=== PATIENT | female | born 1935 | race Caucasian/White ===

== ENCOUNTER → 2017-03-25 | Outpatient (CLI) | payer MEDICARE, OTHER ==
[~2017-03-25] MED LIST: ALEN5TAB3 PO; ANAS5POW2 PO; LVT.05T PO; MTF500T PO; OLME40TA14 PO; SIMV20TA3 PO
--- NOTE | 2017-03-25 11:09 | Diagnostic Imaging Report ---
INDICATION: Screening. COMPARISON: 01/30/2016, 11/22/2014, and 11/10/2013. TECHNIQUE: Screening digital mammography was performed bilaterally with a Computer Aided Detection (CAD) System. FINDINGS: There is a moderate amount of residual fibroglandular tissue bilaterally. There are surgical clips in the left breast. There are scattered calcifications throughout both breasts as well as some nodular densities in both breasts. These are relatively stable. There is no new dominant mass, spiculated lesion, or suspicious calcification identified. The skin, nipples, and axillae are unremarkable. IMPRESSION: Benign findings. ACR BI-RADS Category 2: Benign findings. Result letter will be mailed to the patient. Note: At least 10% of breast cancer is not imaged by mammography. Dictated by: Dictated on workstation # [id number]
== END ==
LOC: RAD 09:30
PROVIDERS: ATTEND Family Medicine
DX: Z12.31 Encounter for screening mammogram for malignant neoplasm of breast (principal); Z85.3 Personal history of malignant neoplasm of breast
CPT/HCPCS: 77067

== ENCOUNTER → 2018-06-11 | Outpatient (CLI) | payer MEDICARE, OTHER ==
--- NOTE | 2018-06-11 19:40 | Diagnostic Imaging Report ---
INDICATION: Routine screening. Comparison is made with prior mammograms from 03/25/2017 and 01/30/2016. 2-D and 3-D bilateral screening mammography was performed with Computer-Aided Detection (CAD) system. FINDINGS: Both breasts are heterogeneously dense, limiting the sensitivity of mammography. Calcified nodular densities in the right breast appear stable. Two biopsy clips in the upper-outer left breast are again noted. A slightly irregular density more inferiorly in the left breast with numerous microcalcifications is again noted. This appears very similar to last year. This density has shown slowly emerging calcifications over the last several years dating back to 2011. Additional views are recommended. No other suspicious abnormality is seen. The axillae are unremarkable. IMPRESSION: Left breast irregular density with associated microcalcifications. Additional views including spot compression and magnification views are recommended. ACR BI-RADS Category 0: Incomplete. (Needs additional imaging evaluation). Result letter will be mailed to the patient. Note: At least 10% of breast cancer is not imaged by mammography. Dictated by: Dictated on workstation # [id number]
== END ==
LOC: RAD 09:46
PROVIDERS: ATTEND Family Medicine
DX: Z12.31 Encounter for screening mammogram for malignant neoplasm of breast (principal)
CPT/HCPCS: 77067

== ENCOUNTER → 2018-06-17 | Outpatient (CLI) | payer MEDICARE, OTHER ==
--- NOTE | 2018-06-17 19:13 | Diagnostic Imaging Report ---
INDICATION: Left breast density. Patient presents for additional views. Correlation is made with recent screening study from 06/11/2018. Unilateral left 2-D and 3-D diagnostic mammography was performed with Computer-Aided Detection (CAD) system including conventional 90-degree lateral view as well as spot compression CC and ML views. FINDINGS: Additional views show persistent irregular density in the left breast projecting slightly lateral to the nipple line on the CC view and perhaps slightly inferior on the ML view. This is 4 cm from the nipple. There are numerous microcalcifications associated with the density. IMPRESSION: Persistent irregular density with microcalcifications at approximately 3 to 4 o'clock location of the left breast 4 cm from the nipple. Further evaluation with ultrasound is recommended and will be performed today. ACR BI-RADS Category 0: Incomplete. (Needs additional imaging evaluation). Result letter will be mailed to the patient. Note: At least 10% of breast cancer is not imaged by mammography. Dictated by: Dictated on workstation # [id number]
--- NOTE | 2018-06-17 19:27 | Diagnostic Imaging Report ---
INDICATION: Abnormal left mammogram. This study is performed for further evaluation. Correlation is made with diagnostic mammogram earlier the same day and screening mammogram from 06/11/2018. FINDINGS: Sonographic interrogation of the lower-outer left breast was performed. There is a slightly irregular region of hypoechogenicity at the 03:30 location of the left breast, 3 cm from the nipple. This area measures 14 mm x 10 mm x 17 mm. There are some punctate hyperechogenicities within this area suggestive of calcifications. This likely accounts for the density noted mammographically. Minimal internal vascularity is present. No other abnormalities are seen. IMPRESSION: Irregular hypoechogenicity with internal microcalcifications at the 03:30 location of the left breast, 3 cm from the nipple. This corresponds to the irregular density noted mammographically. Features are concerning and tissue sampling is recommended. This would be amenable to ultrasound-guided core sampling. ACR BI-RADS Category 4: Suspicious abnormality. Dictated by: Dictated on workstation # [id number]
== END ==
LOC: RAD 12:25
PROVIDERS: ATTEND Family Medicine
DX: R92.0 Mammographic microcalcification found on diagnostic imaging of breast (principal); R92.2 Inconclusive mammogram
CPT/HCPCS: 76642

== ENCOUNTER → 2018-06-24 | Outpatient (CLI) | payer MEDICARE, OTHER ==
[~2018-06-24] VITALS: Ht 157.5 cm; Wt 54.4 kg
[~2018-06-24] MED LIST changes: +LIDOCAINE 1% INJ 20 ML 20 ML VIAL INJ ONE
--- NOTE | 2018-06-24 20:43 | Diagnostic Imaging Report ---
INDICATION: Left breast mass. Patient presents for ultrasound-guided biopsy. Patient was brought to the procedure room, placed on table in the supine position. Ultrasound imaging of the left breast was performed to evaluate appropriate entry site. The left breast was then prepped and draped in usual sterile fashion. Small amount of 1% lidocaine was utilized for local anesthesia. A total of 3 passes were made into the ill-defined hypoechoic mass at the 3:30 location of the left breast, 3 cm from the nipple utilizing 14-gauge Achieve needle. A marker clip was then deployed. Hemostasis was obtained using manual compression. Patient tolerated the procedure well and left the department for a post procedure mammogram in satisfactory condition. IMPRESSION: Successful ultrasound guided core biopsy of the hypoechoic ill-defined mass 3:30 location left breast. Pathology results are currently pending. Dictated by: Dictated on workstation # [id number]
--- NOTE | 2018-06-24 21:24 | Diagnostic Imaging Report ---
INDICATION: Left breast biopsy. EXAMINATION: 2D and 3D lateral left diagnostic mammography was performed after patient underwent left breast ultrasound-guided core biopsy. FINDINGS: Images demonstrate a marker clip just posterior to the ill-defined mass with microcalcifications in the central left breast. Clip appears to be along the posterior and inferior margin of the lesion. Two additional marker clips from previous biopsies in the upper and outer aspect of left breast are also seen. IMPRESSION: Appropriately positioned marker clip within the ill-defined mass, central posterior left breast. Pathology results are pending. Dictated by: Dictated on workstation # [id number]
== END ==
LOC: RAD 08:06
PROVIDERS: ATTEND Family Medicine
DX: C50.512 Malignant neoplasm of lower-outer quadrant of left female breast (principal)
CPT/HCPCS: 19083; 88305; 88341; 88342; 88360

== ENCOUNTER → 2018-08-30 | Outpatient (CLI) | payer MEDICARE, OTHER ==
[~2018-08-30] MED LIST changes: -LIDOCAINE 1% INJ 20 ML 20 ML VIAL INJ ONE
--- NOTE | 2018-08-30 23:43 | Diagnostic Imaging Report ---
Ultrasound of the left breast. INDICATION: Left breast carcinoma. FINDINGS: The previous left breast ultrasound exam performed on 06/17/2018 noted an irregular region of hypoechogenicity in the 3:30 position of the left breast roughly 3 cm from the nipple. This area was subsequently biopsied and proved to be malignant. The diagnostic mammogram performed earlier today suggested that this abnormality may be slightly smaller. On this exam, the area in question does measure slightly smaller and is estimated to be 1.22 x 0.83 cm as opposed to 1.44 x 0.95 cm previously. No other abnormality is noted. IMPRESSION: 1. The irregular hypoechoic lesion seen on the previous study does measure slightly smaller than on the prior exam. 2. These results were discussed with Dr. Golden. ACR BI-RADS Category 6: Known biopsy proven malignancy. Result letter will be mailed to the patient. Note: At least 10% of breast cancer is not imaged by mammography. Dictated by: Dictated on workstation # [id number]
--- NOTE | 2018-08-31 12:45 | Diagnostic Imaging Report ---
EXAMINATION: Unilateral diagnostic left mammogram The recent diagnostic mammogram of 06/09/2018 noted an irregular density with microcalcifications in the 3-4 o'clock position of the left breast. 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 Reportedly, the patient has been receiving treatment for the neoplastic process. On this exam the area of abnormal density seen previously is again evident and does not seem to have changed significantly in size. However it may be minimally smaller. Ultrasound is pending for further evaluation. The overall appearance of the left breast is otherwise stable. No new abnormality has developed. IMPRESSION: The area of carcinoma in the left breast seen previously does not appear to have changed significantly but may be minimally smaller. Ultrasound is pending for further study. ACR BI-RADS Category 0: Incomplete. (Needs additional imaging evaluation). Result letter will be mailed to the patient. Note: At least 10% of breast cancer is not imaged by mammography. Dictated by: Dictated on workstation # [id number]
== END ==
LOC: RAD 08-05 12:27
PROVIDERS: ATTEND Internal Medicine Hematology & Oncology
DX: C50.912 Malignant neoplasm of unspecified site of left female breast (principal)
CPT/HCPCS: 76642

== ENCOUNTER 2018-09-02 14:19 | Outpatient (RCR) | payer MEDICARE, OTHER ==
[2018-09-02 14:37] LABS: BASOPHILS # (AUTO) 0.1 10^3/uL (0.0-0.1); BASOPHILS % (AUTO) 1 % (0-10); EOSINOPHILS # (AUTO) 0.3 10^3/uL (0.0-0.3); EOSINOPHILS % (AUTO) 4 % (0-10); HEMATOCRIT 38 % (35-52); HEMOGLOBIN 12.3 G/DL (11.5-16.0); LYMPHOCYTES # (AUTO) 2.3 X 10^3 (1.0-4.0); LYMPHOCYTES % (AUTO) 29 % (12-44); MEAN CORPUSCULAR HEMOGLOBIN 32 PG (25-34); MEAN CORPUSCULAR HGB CONC 33 G/DL (32-36); MEAN CORPUSCULAR VOLUME 97 FL (80-99); MEAN PLATELET VOLUME 9.1 FL (7.4-10.4); MONOCYTES # (AUTO) 0.8 X 10^3 (0.0-1.0); MONOCYTES % (AUTO) 10 % (0-12); NEUTROPHILS # (AUTO) 4.6 X 10^3 (1.8-7.8); NEUTROPHILS % (AUTO) 57 % (42-75); PLATELET COUNT 259 10^3/uL (130-400); RED CELL DISTRIBUTION WIDTH 12.1 % (10.0-14.5); WHITE BLOOD COUNT 8.1 10^3/uL (4.3-11.0)
[2018-09-02 14:56] LABS: ALANINE AMINOTRANSFERASE 15 U/L (0-55); ALBUMIN 4.6 GM/DL (3.2-4.5); ALKALINE PHOSPHATASE 42 U/L (40-136); BILIRUBIN,TOTAL 0.5 MG/DL (0.1-1.0); BUN/CREATININE RATIO 15; CALCIUM 10.6 MG/DL (8.5-10.1); CARBON DIOXIDE 29 MMOL/L (21-32); CHLORIDE 98 MMOL/L (98-107); CREATININE SERUM 0.97 MG/DL (0.60-1.30); GFR ESTIMATED 55; GLUCOSE 108 MG/DL (70-105); POTASSIUM 4.2 MMOL/L (3.6-5.0); SODIUM 134 MMOL/L (135-145); TOTAL PROTEIN 7.4 GM/DL (6.4-8.2)
== END 2018-09-29 | disposition home or self-care (01) ==
LOC: ONC 14:19
PROVIDERS: ATTEND Internal Medicine Hematology & Oncology
DX: C50.412 Malignant neoplasm of upper-outer quadrant of left female breast (principal); Z17.0 Estrogen receptor positive status [ER+]; E11.9 Type 2 diabetes mellitus without complications; Z79.811 Long term (current) use of aromatase inhibitors; Z79.84 Long term (current) use of oral hypoglycemic drugs; Z79.899 Other long term (current) drug therapy
CPT/HCPCS: 36415; 80053; 85025; 99213; 99214

== ENCOUNTER → 2018-11-26 | Outpatient (CLI) | payer MEDICARE, OTHER ==
--- NOTE | 2018-11-26 19:45 | Diagnostic Imaging Report ---
EXAMINATION: Paranasal sinuses at 11:28 a.m. INDICATION: Trauma to the left side of face. Three views were obtained. There are no prior studies available for comparison. FINDINGS: The sinuses are generally clear and well aerated. There is no mucosal thickening or fluid layering to suggest sinusitis. There is no fracture or acute bony abnormality identified either. The soft tissues are unremarkable. IMPRESSION: 1. There is no evidence for active sinus disease, and there is no sign of an acute bony abnormality. 2. If clinical concern regarding an underlying abnormality persists, then CT of the facial bones would be recommended for further study. Dictated by: Dictated on workstation # [id number]
== END ==
LOC: RAD 11:01
PROVIDERS: ATTEND Family Medicine
DX: S09.93XA Unspecified injury of face, initial encounter (principal)
CPT/HCPCS: 70220

== ENCOUNTER → 2019-02-10 | Outpatient (CLI) | payer MEDICARE, OTHER ==
[2019-02-10 14:00] LABS: BASOPHILS # (AUTO) 0.1 10^3/uL (0.0-0.1); BASOPHILS % (AUTO) 1 % (0-10); EOSINOPHILS # (AUTO) 0.2 10^3/uL (0.0-0.3); EOSINOPHILS % (AUTO) 3 % (0-10); HEMATOCRIT 37 % (35-52); LYMPHOCYTES # (AUTO) 2.4 X 10^3 (1.0-4.0); LYMPHOCYTES % (AUTO) 29 % (12-44); MEAN CORPUSCULAR HEMOGLOBIN 32 PG (25-34); MEAN CORPUSCULAR HGB CONC 33 G/DL (32-36); MEAN CORPUSCULAR VOLUME 97 FL (80-99); MEAN PLATELET VOLUME 9.2 FL (7.4-10.4); MONOCYTES # (AUTO) 0.6 X 10^3 (0.0-1.0); MONOCYTES % (AUTO) 8 % (0-12); NEUTROPHILS # (AUTO) 4.8 X 10^3 (1.8-7.8); NEUTROPHILS % (AUTO) 59 % (42-75); PLATELET COUNT 300 10^3/uL (130-400); RED CELL DISTRIBUTION WIDTH 12.3 % (10.0-14.5); WHITE BLOOD COUNT 8.2 10^3/uL (4.3-11.0)
[2019-02-10 14:20] LABS: ALANINE AMINOTRANSFERASE 16 U/L (0-55); ALBUMIN 4.7 GM/DL (3.2-4.5); ALKALINE PHOSPHATASE 45 U/L (40-136); BILIRUBIN,TOTAL 0.5 MG/DL (0.1-1.0); BUN/CREATININE RATIO 17; CALCIUM 10.9 MG/DL (8.5-10.1); CARBON DIOXIDE 30 MMOL/L (21-32); CHLORIDE 99 MMOL/L (98-107); CREATININE SERUM 1.21 MG/DL (0.60-1.30); GFR ESTIMATED 42; GLUCOSE 169 MG/DL (70-105); POTASSIUM 4.3 MMOL/L (3.6-5.0); SODIUM 139 MMOL/L (135-145); TOTAL PROTEIN 7.6 GM/DL (6.4-8.2)
== END ==
LOC: EDSTATUS 09-30 13:42 → ONC 13:48
PROVIDERS: ATTEND Internal Medicine Hematology & Oncology
DX: C50.412 Malignant neoplasm of upper-outer quadrant of left female breast (principal)
CPT/HCPCS: 36415; 80053; 85025; 99213

== ENCOUNTER → 2019-08-11 | Outpatient (CLI) | payer MEDICARE, OTHER ==
--- NOTE | 2019-08-11 18:26 | Diagnostic Imaging Report ---
INDICATION: Left breast carcinoma. Study is performed for follow-up. COMPARISON: Correlation is made with recent diagnostic mammogram from earlier the same day as well as prior left breast ultrasound from 08/30/2018. EXAMINATION: Left breast sonography was performed. FINDINGS: Area of known malignancy in the left breast, 3:00 location, 2 cm from the nipple was evaluated. Lesion is difficult to see on today's study. This does appear to be decreased in size. There is an area of heterogeneity measuring approximately 0.7 x 0.6 x 0.7 cm. This area compares with 1.2 x 0.8 x 1.1 cm on prior exam. No new abnormality is detected. IMPRESSION: Decrease in size of known malignancy, 3:00 location of left breast, when compared with examination from 08/30/2018. ACR BI-RADS Category 6: Known biopsy proven malignancy. Result letter will be mailed to the patient. Note: At least 10% of breast cancer is not imaged by mammography. Dictated by: Dictated on workstation # [id number]
--- NOTE | 2019-08-11 18:28 | Diagnostic Imaging Report ---
INDICATION: Left breast carcinoma, follow-up. COMPARISON: Correlation is made with prior mammogram from 08/30/2018 as well as 06/11/2018 and 03/25/2017. EXAMINATION: 2D and 3D bilateral diagnostic mammography was performed with cad. The current study was also evaluated with a Computer Aided Detection (CAD) system. FINDINGS: There is continued improvement in the area of known malignancy in the lower central left breast with associated microcalcifications. There is an adjacent biopsy clip. There are biopsy clips in the superior left breast as well. No new mass is seen. The right breast is unremarkable apart from stable lobulated nodule superiorly with associated benign calcifications. Axillae are unremarkable. IMPRESSION: Continued decrease in size and prominence to the known malignancy in the slightly inferior left breast when compared with study from the August 2018. Sonographic evaluation of this area is recommended and will be performed today. ACR BI-RADS Category 0: Incomplete. (Needs additional imaging evaluation). Result letter will be mailed to the patient. Note: At least 10% of breast cancer is not imaged by mammography. Dictated by: Dictated on workstation # [id number]
== END ==
LOC: RAD 12:04
PROVIDERS: ATTEND Internal Medicine Hematology & Oncology
DX: C50.112 Malignant neoplasm of central portion of left female breast (principal); Z98.890 Other specified postprocedural states
CPT/HCPCS: 76642; 77062; 77066

== ENCOUNTER → 2019-08-18 | Outpatient (CLI) | payer MEDICARE, OTHER ==
[2019-08-18 14:00] LABS: BASOPHILS # (AUTO) 0.1 10^3/uL (0.0-0.1); BASOPHILS % (AUTO) 1 % (0-10); EOSINOPHILS # (AUTO) 0.3 10^3/uL (0.0-0.3); EOSINOPHILS % (AUTO) 4 % (0-10); HEMATOCRIT 24 % (35-52); HEMOGLOBIN 7.1 G/DL (11.5-16.0); LYMPHOCYTES # (AUTO) 2.5 X 10^3 (1.0-4.0); LYMPHOCYTES % (AUTO) 32 % (12-44); MEAN CORPUSCULAR HEMOGLOBIN 22 PG (25-34); MEAN CORPUSCULAR HGB CONC 29 G/DL (32-36); MEAN CORPUSCULAR VOLUME 76 FL (80-99); MEAN PLATELET VOLUME 8.8 FL (7.4-10.4); MONOCYTES # (AUTO) 0.7 X 10^3 (0.0-1.0); MONOCYTES % (AUTO) 10 % (0-12); NEUTROPHILS # (AUTO) 4.2 X 10^3 (1.8-7.8); NEUTROPHILS % (AUTO) 53 % (42-75); PLATELET COUNT 430 10^3/uL (130-400); RED CELL DISTRIBUTION WIDTH 17.3 % (10.0-14.5); WHITE BLOOD COUNT 7.8 10^3/uL (4.3-11.0)
[2019-08-18 14:22] LABS: ALBUMIN 4.2 GM/DL (3.2-4.5); BILIRUBIN,TOTAL 0.3 MG/DL (0.1-1.0); CALCIUM 9.9 MG/DL (8.5-10.1); CREATININE SERUM 1.37 MG/DL (0.60-1.30); POTASSIUM 4.5 MMOL/L (3.6-5.0); TOTAL PROTEIN 7.4 GM/DL (6.4-8.2)
== END ==
LOC: ONC 13:46
PROVIDERS: ATTEND Internal Medicine Hematology & Oncology
DX: D64.9 Anemia, unspecified (principal); C50.412 Malignant neoplasm of upper-outer quadrant of left female breast
CPT/HCPCS: 80053; 82728; 83540; 85025; 99213

== ENCOUNTER → 2019-08-24 | Outpatient (CLI) | payer MEDICARE, OTHER ==
[2019-08-24 10:42] LABS: BASOPHILS # (AUTO) 0.1 10^3/uL (0.0-0.1); BASOPHILS % (AUTO) 2 % (0-10); EOSINOPHILS # (AUTO) 0.3 10^3/uL (0.0-0.3); EOSINOPHILS % (AUTO) 4 % (0-10); HEMATOCRIT 24 % (35-52); HEMOGLOBIN 7.2 G/DL (11.5-16.0); LYMPHOCYTES # (AUTO) 1.6 X 10^3 (1.0-4.0); LYMPHOCYTES % (AUTO) 25 % (12-44); MEAN CORPUSCULAR HEMOGLOBIN 22 PG (25-34); MEAN CORPUSCULAR HGB CONC 30 G/DL (32-36); MEAN CORPUSCULAR VOLUME 75 FL (80-99); MEAN PLATELET VOLUME 8.5 FL (7.4-10.4); MONOCYTES # (AUTO) 0.7 X 10^3 (0.0-1.0); MONOCYTES % (AUTO) 11 % (0-12); NEUTROPHILS # (AUTO) 3.8 X 10^3 (1.8-7.8); NEUTROPHILS % (AUTO) 59 % (42-75); PLATELET COUNT 418 10^3/uL (130-400); WHITE BLOOD COUNT 6.4 10^3/uL (4.3-11.0)
[2019-08-24 10:57] LABS: POTASSIUM 4.7 MMOL/L (3.6-5.0)
[2019-08-24 10:58] LABS: CALCIUM 9.5 MG/DL (8.5-10.1)
[2019-08-24 11:03] LABS: CREATININE SERUM 0.96 MG/DL (0.60-1.30)
== END ==
LOC: LAB 10:27
PROVIDERS: ATTEND Family Medicine
DX: E11.9 Type 2 diabetes mellitus without complications (principal); D64.9 Anemia, unspecified; N28.9 Disorder of kidney and ureter, unspecified
CPT/HCPCS: 36415; 80048; 83036; 85025

== ENCOUNTER → 2019-09-15 | Outpatient (CLI) | payer MEDICARE, OTHER ==
[2019-09-15 13:31] LABS: BASOPHILS # (AUTO) 0.1 10^3/uL (0.0-0.1); BASOPHILS % (AUTO) 1 % (0-10); EOSINOPHILS # (AUTO) 0.2 10^3/uL (0.0-0.3); EOSINOPHILS % (AUTO) 3 % (0-10); HEMATOCRIT 33 % (35-52); HEMOGLOBIN 10.1 G/DL (11.5-16.0); LYMPHOCYTES # (AUTO) 1.8 X 10^3 (1.0-4.0); LYMPHOCYTES % (AUTO) 29 % (12-44); MEAN CORPUSCULAR HEMOGLOBIN 27 PG (25-34); MEAN CORPUSCULAR HGB CONC 30 G/DL (32-36); MEAN CORPUSCULAR VOLUME 88 FL (80-99); MEAN PLATELET VOLUME 8.9 FL (7.4-10.4); MONOCYTES # (AUTO) 0.5 X 10^3 (0.0-1.0); MONOCYTES % (AUTO) 8 % (0-12); NEUTROPHILS # (AUTO) 3.7 X 10^3 (1.8-7.8); NEUTROPHILS % (AUTO) 59 % (42-75); PLATELET COUNT 359 10^3/uL (130-400); WHITE BLOOD COUNT 6.3 10^3/uL (4.3-11.0)
[2019-09-15 13:48] LABS: ALBUMIN 4.3 GM/DL (3.2-4.5); BILIRUBIN,TOTAL 0.4 MG/DL (0.1-1.0); CALCIUM 10.3 MG/DL (8.5-10.1); CREATININE SERUM 1.03 MG/DL (0.60-1.30); POTASSIUM 4.3 MMOL/L (3.6-5.0); TOTAL PROTEIN 7.2 GM/DL (6.4-8.2)
== END ==
LOC: ONC 13:11
PROVIDERS: ATTEND Internal Medicine Hematology & Oncology
DX: C50.412 Malignant neoplasm of upper-outer quadrant of left female breast (principal); D50.0 Iron deficiency anemia secondary to blood loss (chronic)
CPT/HCPCS: 80053; 82728; 83540; 85025; G0463; 99213

== ENCOUNTER → 2019-10-10 | Outpatient (CLI) | payer MEDICARE, OTHER ==
--- NOTE | 2019-10-10 13:40 | Diagnostic Imaging Report ---
INDICATION: Left hip pain. TIME OF EXAM: 12:51 PM. FINDINGS: Two views of the left hip were obtained. The femoroacetabular alignment is normal. There is some superior joint space narrowing present. The femoral head and neck are intact. There are no fractures. The lesser rami are intact. IMPRESSION: Hip joint degenerative changes. No acute bony abnormality is detected. Dictated by: Dictated on workstation # [id number]
== END ==
LOC: RAD 12:33
PROVIDERS: ATTEND Family Medicine
DX: M16.12 Unilateral primary osteoarthritis, left hip (principal)
CPT/HCPCS: 73502

== ENCOUNTER → 2019-10-12 | Outpatient (CLI) | payer MEDICARE, OTHER ==
[2019-10-12 10:48] LABS: HEMATOCRIT 35 % (35-52); HEMOGLOBIN 11.2 G/DL (11.5-16.0); MEAN CORPUSCULAR HEMOGLOBIN 29 PG (25-34); MEAN CORPUSCULAR HGB CONC 32 G/DL (32-36); MEAN CORPUSCULAR VOLUME 90 FL (80-99); MEAN PLATELET VOLUME 9.1 FL (7.4-10.4); PLATELET COUNT 313 10^3/uL (130-400); WHITE BLOOD COUNT 6.8 10^3/uL (4.3-11.0)
== END ==
LOC: LAB 10:39
PROVIDERS: ATTEND Family Medicine
DX: D64.9 Anemia, unspecified (principal)
CPT/HCPCS: 36415; 85027

== ENCOUNTER → 2019-11-10 | Outpatient (CLI) | payer MEDICARE, OTHER ==
[2019-11-10 13:24] LABS: BASOPHILS # (AUTO) 0.2 10^3/uL (0.0-0.1); BASOPHILS % (AUTO) 2 % (0-10); EOSINOPHILS # (AUTO) 0.3 10^3/uL (0.0-0.3); EOSINOPHILS % (AUTO) 4 % (0-10); HEMATOCRIT 31 % (35-52); HEMOGLOBIN 10.1 G/DL (11.5-16.0); LYMPHOCYTES # (AUTO) 2.2 X 10^3 (1.0-4.0); LYMPHOCYTES % (AUTO) 25 % (12-44); MEAN CORPUSCULAR HEMOGLOBIN 29 PG (25-34); MEAN CORPUSCULAR HGB CONC 33 G/DL (32-36); MEAN CORPUSCULAR VOLUME 89 FL (80-99); MEAN PLATELET VOLUME 8.8 FL (7.4-10.4); MONOCYTES # (AUTO) 0.8 X 10^3 (0.0-1.0); MONOCYTES % (AUTO) 9 % (0-12); NEUTROPHILS # (AUTO) 5.5 X 10^3 (1.8-7.8); NEUTROPHILS % (AUTO) 61 % (42-75); PLATELET COUNT 349 10^3/uL (130-400); RED CELL DISTRIBUTION WIDTH 17.2 % (10.0-14.5)
[2019-11-10 13:47] LABS: ALANINE AMINOTRANSFERASE 15 U/L (0-55); ALBUMIN 4.1 GM/DL (3.2-4.5); ALKALINE PHOSPHATASE 44 U/L (40-136); BILIRUBIN,TOTAL 0.2 MG/DL (0.1-1.0); BUN/CREATININE RATIO 24; CALCIUM 9.9 MG/DL (8.5-10.1); CARBON DIOXIDE 25 MMOL/L (21-32); CHLORIDE 102 MMOL/L (98-107); CREATININE SERUM 0.84 MG/DL (0.60-1.30); GFR ESTIMATED > 60; GLUCOSE 120 MG/DL (70-105); POTASSIUM 4.7 MMOL/L (3.6-5.0); SODIUM 136 MMOL/L (135-145); TOTAL PROTEIN 7.3 GM/DL (6.4-8.2)
== END ==
LOC: ONC 13:15
PROVIDERS: ATTEND Internal Medicine Hematology & Oncology
DX: C50.412 Malignant neoplasm of upper-outer quadrant of left female breast (principal); D50.9 Iron deficiency anemia, unspecified
CPT/HCPCS: 99213

== ENCOUNTER → 2020-01-19 | Outpatient (CLI) | payer MEDICARE, OTHER ==
[2020-01-19 13:51] LABS: BASOPHILS # (AUTO) 0.1 10^3/uL (0.0-0.1); BASOPHILS % (AUTO) 1 % (0-10); EOSINOPHILS # (AUTO) 0.1 10^3/uL (0.0-0.3); EOSINOPHILS % (AUTO) 2 % (0-10); HEMATOCRIT 30 % (35-52); LYMPHOCYTES # (AUTO) 2.1 10^3/uL (1.0-4.0); LYMPHOCYTES % (AUTO) 30 % (12-44); MEAN CORPUSCULAR HEMOGLOBIN 26 pg (25-34); MEAN CORPUSCULAR HGB CONC 30 g/dL (32-36); MEAN CORPUSCULAR VOLUME 87 fL (80-99); MEAN PLATELET VOLUME 8.9 fL (9.0-12.2); MONOCYTES # (AUTO) 0.5 10^3/uL (0.0-1.0); MONOCYTES % (AUTO) 7 % (0-12); NEUTROPHILS # (AUTO) 4.3 10^3/uL (1.8-7.8); NEUTROPHILS % (AUTO) 60 % (42-75); PLATELET COUNT 362 10^3/uL (130-400); WHITE BLOOD COUNT 7.2 10^3/uL (4.3-11.0)
[2020-01-19 14:09] LABS: ALBUMIN 4.4 GM/DL (3.2-4.5); BILIRUBIN,TOTAL 0.4 MG/DL (0.1-1.0); CALCIUM 10.1 MG/DL (8.5-10.1); CREATININE SERUM 0.98 MG/DL (0.60-1.30); POTASSIUM 4.6 MMOL/L (3.6-5.0); TOTAL PROTEIN 7.5 GM/DL (6.4-8.2)
== END ==
LOC: ONC 13:29
PROVIDERS: ATTEND Internal Medicine Hematology & Oncology
DX: C50.412 Malignant neoplasm of upper-outer quadrant of left female breast (principal); D50.0 Iron deficiency anemia secondary to blood loss (chronic)
CPT/HCPCS: 80053; 82728; 83540; 85025; 99213

== ENCOUNTER → 2020-01-24 | Outpatient (CLI) | payer MEDICARE, OTHER | LOC: LAB 13:05 | PROVIDERS: ATTEND Family Medicine | DX: E11.9 Type 2 diabetes mellitus without complications (principal) | CPT/HCPCS: 36415; 83036 ==

== ENCOUNTER → 2020-03-21 | Outpatient (CLI) | payer MEDICARE, OTHER ==
[2020-03-21 15:53] LABS: BASOPHILS # (AUTO) 0.1 10^3/uL (0.0-0.1); BASOPHILS % (AUTO) 1 % (0-10); EOSINOPHILS % (AUTO) 0 % (0-10); HEMATOCRIT 26 % (35-52); HEMOGLOBIN 7.8 g/dL (11.5-16.0); LYMPHOCYTES % (AUTO) 20 % (12-44); MEAN CORPUSCULAR HEMOGLOBIN 25 pg (25-34); MEAN CORPUSCULAR HGB CONC 30 g/dL (32-36); MEAN CORPUSCULAR VOLUME 84 fL (80-99); MEAN PLATELET VOLUME 8.5 fL (9.0-12.2); MONOCYTES # (AUTO) 0.7 10^3/uL (0.0-1.0); MONOCYTES % (AUTO) 7 % (0-12); NEUTROPHILS % (AUTO) 70 % (42-75); PLATELET COUNT 350 10^3/uL (130-400); WHITE BLOOD COUNT 9.9 10^3/uL (4.3-11.0)
[2020-03-21 16:10] LABS: ERYTHROCYTE SEDIMENTATION RATE 56 MM/HR (0-30)
== END ==
LOC: LAB 15:25
PROVIDERS: ATTEND Ophthalmology
DX: R51.9 Headache, unspecified (principal)
CPT/HCPCS: 36415; 85025; 85652; 86141

== ENCOUNTER → 2020-03-22 | Outpatient (CLI) | payer MEDICARE, OTHER | LOC: LAB 13:47 | PROVIDERS: ATTEND Family Medicine | DX: D64.9 Anemia, unspecified (principal) | CPT/HCPCS: 82274 ==

== ENCOUNTER 2020-03-30 05:32 | Outpatient (RCR) | payer MEDICARE, OTHER ==
[~2020-03-30] VITALS: Ht 157.5 cm; Wt 59.0 kg
[~2020-03-30 05:32] MED LIST changes: -ALEN5TAB6 PO; -ANAS1TAB50 PO; -LEVO50TA6 PO; -METF-397 PO; -OLME40TA18 PO; -SIMV20TA26 PO
== END 2020-03-30 11:02 | disposition home or self-care (01) ==
LOC: PREOP 05:32
PROVIDERS: ATTEND Surgery
DX: Z01.812 Encounter for preprocedural laboratory examination (principal); D64.9 Anemia, unspecified; Z20.822 Contact with and (suspected) exposure to COVID-19
CPT/HCPCS: 87635

== ENCOUNTER → 2020-03-30 | Outpatient (CLI) | payer MEDICARE, OTHER ==
[~2020-03-30] MED LIST changes: +ALEN5TAB6 PO; +ANAS1TAB50 PO; +LEVO50TA6 PO; +METF-397 PO; +OLME40TA18 PO; +SIMV20TA26 PO
--- NOTE | 2020-03-30 11:22 | Diagnostic Imaging Report ---
PROCEDURE: CT head without contrast. TECHNIQUE: Multiple contiguous axial images were obtained through the brain without the use of intravenous contrast. Auto Exposure Controls were utilized during the CT exam to meet ALARA standards for radiation dose reduction. DATE: March 30, 2020. COMPARISON: MRI brain February 19, 2015. CT head January 11, 2015. INDICATION: 84-year-old female, headaches. FINDINGS: There is mild proportional prominence of the ventricles and CSF spaces consistent with mild cerebral volume loss. There is no abnormal extra-axial fluid collection. There is no evidence of acute intracranial hemorrhage. There is no mass effect or midline shift. The visualized portions of the paranasal sinuses, mastoid air cells, and middle ears are well-aerated. IMPRESSION: 1. No identified acute intracranial abnormality. 2. Mild cerebral volume loss. Dictated by: Dictated on workstation # [id number]
== END ==
LOC: RAD 10:45
PROVIDERS: ATTEND Family Medicine
DX: G31.9 Degenerative disease of nervous system, unspecified (principal)
CPT/HCPCS: 70450

== ENCOUNTER 2020-04-02 10:47 | Day surgery (SDC) | payer MEDICARE, OTHER ==
[~2020-04-02] VITALS: Ht 157.5 cm; Wt 59.0 kg
[2020-04-02] VITALS (9 sets, daily range): BP systolic 102–142; BP diastolic 59–78
--- NOTE | 2020-04-02 11:08 | Progress Note-Pre Operative ---
Pre-Operative Progress Note H&P Reviewed The H&P was reviewed, patient examined and no changes noted. Time Seen by Provider: 11:06 Date H&P Reviewed: Apr 02, 2020 Time H&P Reviewed: 11:06 Pre-Operative Diagnosis: Anemia, screening colonoscopy, gastritis AME SLATER DO Apr 02, 2020 11:08
[2020-04-02] MEDS ORDERED: LACTATED RINGERS 1,000 ML IV ONE (11:18)
[2020-04-02] MEDS ORDERED: LACTATED RINGERS 1,000 ML IV STA (11:24)
[2020-04-02] MEDS ORDERED: HURRICAINE EXT TUBE (BENZOCAINE) XX PRN (11:30)
[2020-04-02] MEDS ORDERED: PROPOFOL INJECTION 50 ML IV ONE (11:58)
[2020-04-02] MEDS ORDERED: MIDAZOLAM 2 MG/2 ML (VERSED) VIAL ONE (11:58)
[2020-04-02] MEDS ORDERED: OLME40TA18 PO (12:04)
[2020-04-02] MEDS ORDERED: ALEN5TAB6 PO (12:04)
[2020-04-02] MEDS ORDERED: METF-397 PO (12:04)
[2020-04-02] MEDS ORDERED: LEVO50TA6 PO (12:04)
[2020-04-02] MEDS ORDERED: ANAS1TAB50 PO (12:04)
[2020-04-02] MEDS ORDERED: SIMV20TA26 PO (12:04)
--- NOTE | 2020-04-02 13:01 | Progress Note-Post Operative ---
Post-Operative Progess Note Surgeon (s)/Stock Grader (s) Surgeon AME SLATER DO Stock Grader: [id number] Conn Pre-Operative Diagnosis Anemia, screening colonoscopy, gastritis Post-Operative Diagnosis Gastritis ?duodenal polyp Cecal mass diverticula internal hemorrhoids Procedure & Operative Findings Date of Procedure 04/02/20 Procedure Performed/Findings EGD with bx Colon with hot bx Colon with tattoo Anesthesia Type IV sedation by WORKFORCE DEVELOPMENT VICE PRESIDENT Estimated Blood Loss Estimated blood loss (mL): scant Specimens/Packing Specimens Removed duodenal bx Antral bx GE jxn bx Cecal bx AME SLATER DO Apr 02, 2020 13:01
--- NOTE | 2020-04-02 13:02 | Endoscopy Discharge Instruct ---
Endo Procedure/Findings Findings 1.: Gastritis 2.: Polyp 3.: Diverticulosis 4.: Internal Hemorrhoids Discharge Instructions - Activity: You might feel a little sleepy until tomorrow. This is due to the medicine you received to relax you. Until tomorrow, you should: NOT drive a car, operate machinery or power tools. NOT drink any alcoholic beverages. NOT make any important decisions or sign importortant papers. Do not return to work until tomorrow, unless otherwise instructed. Resume previo us activities tomorrow. Diet: Start by taking liquids. If you tolerate liquids, advance to solid food. 1.: Colonoscopy in 1 year 2.: EGD in 1 year Notify Physician - If you experience excessive bleeding, unusual abdominal pain, fever, or chest pain, contact your doctor immediately. AME SLATER DO Apr 02, 2020 13:02
--- NOTE | 2020-04-02 13:05 | Anesthesia-General Post-Op ---
MAC Patient Condition Mental Status/LOC: Same as Preop Cardiovascular: Satisfactory Nausea/Vomiting: Absent Respiratory: Satisfactory Pain: Controlled Complications: Absent Post Op Complications Complications None Follow Up Care/Instructions Patient Instructions None needed. Anesthesiology Discharge Order Discharge Order Patient is doing well, no complaints, stable vital signs, no apparent adverse anesthesia problems. No complications reported per nursing. VIKASH WARE CRNA Apr 02, 2020 13:05
--- NOTE | 2020-04-02 23:15 | OPERATIVE REPORT ---
DATE OF SERVICE: PREOPERATIVE DIAGNOSES: Anemia, screening colonoscopy, gastritis. POSTOPERATIVE DIAGNOSES: Gastritis, questionable duodenal polyp as well as cecal mass, diverticula, internal hemorrhoids. PROCEDURES: 1. EGD with biopsy. 2. Colonoscopy with hot biopsy. 3. Colonoscopy with tattooing. SURGEON: Victoriano Muir DO SHOOTER'S HELPER: LINUS Conn. ANESTHESIA: IV sedation by the ALCOHOLIC COUNSELOR. SPECIMEN: Duodenal biopsy, antral biopsy, GE junction biopsy and cecal biopsy. BLOOD LOSS: Scant. FLUIDS: Per anesthesia. POSTOPERATIVE CONDITION: Stable. INDICATION FOR PROCEDURE: The patient is an 84-year-old female who is having some anemia, also history of gastritis and she needed a screening colonoscopy. FINDINGS: The patient had what looked like possible duodenal polyps. She had some mild gastritis in his colon. She had a large cecal mass. She had multiple diverticula and she had some internal hemorrhoids. PROCEDURE NOTE: After informed consent was obtained, the patient was brought to the endoscopy suite, placed in bed in left lateral decubitus position. She was administered IV sedation by the ALCOHOLIC COUNSELOR who then monitored her vitals the entire time, heart rate, blood pressure and pulse ox. Started with the EGD, placed the scope down the mouth through the esophagus into the stomach, pushed pass the antrum into the duodenum and the duodenum looked like there was possibly polyps, took a picture and then did a biopsy of this. Pulled the scope back and did a biopsy of the antrum. Retroflexed the scope, did not really see hiatal hernia. Pulled the scope into the GE junction, did a biopsy. I did not really see any other gastritis in the rest of the stomach. At this point, then pushed the scope into the stomach, suctioned all the air out and then pulled the scope up the esophagus and out the mouth. Switched camera, switched gloves, went down below, started the colonoscopy, pushed in and saw some large diverticula and a couple of retained fecal balls, able to then push all the way up to the cecum, could not really identify the appendiceal orifice but I may have I am not sure but in the cecum, there was a large mass, I elected to do a hot biopsy of this, got good pieces and then elected to do some tattooing in case we needed to go back to get this area out and it was in the cecum. At this point, then slowly withdrew the scope insufflating to look circumferentially at the rayo starting in the cecum, up the ascending colon, hepatic flexure, then down the transverse colon, splenic flexure, into the descending colon down to the sigmoid, finally into the rectum and then retroflexed in rectal vault, saw some minimal internal hemorrhoids, took a picture of these and then removed the scope. The patient tolerated the procedure. She was recovered in endoscopy suite. Job ID: [id number] DocumentID: [id number] Dictated Date: 04/02/2020 16:09:46 Shoe Singer Date: 04/02/2020 23:13:44 Dictated By: DO NIMESH BATEMAN
== END 2020-04-02 13:55 | disposition home or self-care (01) ==
LOC: ENDO 10:47
PROVIDERS: ATTEND Surgery
DX: Z12.11 Encounter for screening for malignant neoplasm of colon (principal); C18.0 Malignant neoplasm of cecum; K29.70 Gastritis, unspecified, without bleeding; K64.8 Other hemorrhoids; K57.30 Diverticulosis of large intestine without perforation or abscess without bleeding; I10 Essential (primary) hypertension; E11.9 Type 2 diabetes mellitus without complications; E03.9 Hypothyroidism, unspecified; E78.5 Hyperlipidemia, unspecified; K21.9 Gastro-esophageal reflux disease without esophagitis; D50.9 Iron deficiency anemia, unspecified; K29.50 Unspecified chronic gastritis without bleeding; Z79.899 Other long term (current) drug therapy; Z79.84 Long term (current) use of oral hypoglycemic drugs; Z88.2 Allergy status to sulfonamides
CPT/HCPCS: 82962; 88305; 88341; 88342

== ENCOUNTER 2020-04-17 05:35 | Outpatient (RCR) | payer MEDICARE, OTHER ==
[~2020-04-17] VITALS: Ht 160 cm; Wt 56.0 kg
[~2020-04-17 05:35] MED LIST changes: +ALEN5TAB6 PO; +ANAS1TAB50 PO; +LEVO50TA6 PO; +METF-397 PO; +OLME40TA18 PO; +SIMV20TA26 PO
== END 2020-04-17 09:47 | disposition home or self-care (01) ==
LOC: PREOP 05:35
PROVIDERS: ATTEND Surgery
DX: Z01.812 Encounter for preprocedural laboratory examination (principal); C18.0 Malignant neoplasm of cecum; Z20.822 Contact with and (suspected) exposure to COVID-19
CPT/HCPCS: 87635

== ENCOUNTER 2020-04-19 08:48 | Inpatient (IN) | payer MEDICARE, OTHER ==
[~2020-04-19] VITALS: Ht 157 cm; Wt 56.0 kg
[2020-04-19] VITALS (12 sets, daily range): BP systolic 125–154; BP diastolic 67–78
[2020-04-19] MEDS ORDERED: ceFAZolin 2 GM IV Premixed 50 ML IV ONE (09:15)
[2020-04-19] MEDS: LACTATED RINGERS 1,000 ML IV PRN ×2 (09:30→11:10)
[2020-04-19 09:37] LABS: BASOPHILS # (AUTO) 0.1 10^3/uL (0.0-0.1); BASOPHILS % (AUTO) 2 % (0-10); EOSINOPHILS # (AUTO) 0.1 10^3/uL (0.0-0.3); EOSINOPHILS % (AUTO) 2 % (0-10); HEMATOCRIT 24 % (35-52); HEMOGLOBIN 7.1 g/dL (11.5-16.0); LYMPHOCYTES # (AUTO) 1.2 10^3/uL (1.0-4.0); LYMPHOCYTES % (AUTO) 28 % (12-44); MEAN CORPUSCULAR HEMOGLOBIN 25 pg (25-34); MEAN CORPUSCULAR HGB CONC 29 g/dL (32-36); MEAN CORPUSCULAR VOLUME 84 fL (80-99); MEAN PLATELET VOLUME 8.4 fL (9.0-12.2); MONOCYTES # (AUTO) 0.5 10^3/uL (0.0-1.0); MONOCYTES % (AUTO) 11 % (0-12); NEUTROPHILS # (AUTO) 2.4 10^3/uL (1.8-7.8); NEUTROPHILS % (AUTO) 57 % (42-75); PLATELET COUNT 414 10^3/uL (130-400); WHITE BLOOD COUNT 4.2 10^3/uL (4.3-11.0)
[2020-04-19] MEDS ORDERED: ceFAZolin 2 GM IV Premixed 50 ML ONE (09:42)
[2020-04-19] MEDS ORDERED: ROCURONIUM 10 MG/ML 5 ML SYRINGE IV ONE (09:46)
[2020-04-19] MEDS ORDERED: BUPIVACAINE 0.5% 30 ML (SENSORCAINE) VIAL ONE (09:46)
[2020-04-19] MEDS ORDERED: proPOfol 200 MG/20 ML (DIPRIVAN) VIAL IV ONE (09:46)
[2020-04-19] MEDS ORDERED: ONDANSETRON 4 MG/2 ML (SDV) Z0FRAN ONE ×3 (09:46→12:05)
[2020-04-19] MEDS ORDERED: SEVOFLURANE (ULTANE) 15 ML INHAL SOLN ONE (09:46)
[2020-04-19] MEDS ORDERED: GLYCOPYRROLATE 0.2 MG/ML (ROBINUL) 2 ML VIAL ONE (09:46)
[2020-04-19] MEDS ORDERED: NEOSTIGMINE 3 MG/3 ML VIAL ONE (09:46)
[2020-04-19] MEDS ORDERED: LIDOCAINE PF 2% 5 ML (XYLOCAINE) VIAL ONE (09:46)
[2020-04-19] MEDS ORDERED: fentaNYL INJECTION 100 MCG/2 ML AMP ONE (09:47)
--- NOTE | 2020-04-19 09:50 | Progress Note-Pre Operative ---
Pre-Operative Progress Note H&P Reviewed The H&P was reviewed, patient examined and no changes noted. Time Seen by Provider: 09:47 Date H&P Reviewed: Apr 19, 2020 Time H&P Reviewed: 09:48 Pre-Operative Diagnosis: Cecal Adenocarcinoma AME SLATER DO Apr 19, 2020 09:50
[2020-04-19] MEDS ORDERED: ESMOLOL 100 MG/10 ML (BREVIBLOC) VIAL ONE (10:39)
--- NOTE | 2020-04-19 10:57 | Progress Note-Post Operative ---
Post-Operative Progess Note Surgeon (s)/Sap Trainer (s) Surgeon AME SLATER DO Sap Trainer: Minda Pre-Operative Diagnosis Cecal Adenocarcinoma Post-Operative Diagnosis same pending path Procedure & Operative Findings Date of Procedure 04/19/20 Procedure Performed/Findings Open Right hemicolectomy Anesthesia Type GET Estimated Blood Loss Estimated blood loss (mL): less than 20ml Specimens/Packing Specimens Removed portion of TI, right colon and appy AME SLATER DO Apr 19, 2020 10:57
[2020-04-19] MEDS ORDERED: ONDANSETRON 4 MG/2 ML (SDV) Z0FRAN IVP PRN ×3 (11:00→14:00)
[2020-04-19] MEDS ORDERED: morphine INJ 10 MG/ML 1ML (SYR OR VIAL) IVP ONE ×2 (11:15→14:00)
[2020-04-19] MEDS ORDERED: morphine INJ 10 MG/ML 1ML (SYR OR VIAL) ONE (11:16)
--- NOTE | 2020-04-19 12:15 | NUR ---
REC'D PER BED FROM PAR. LETHARGIC. OPENS EYES. SARI HEARING AIDS IN PLACE AND GLASSES ON. SEE ASSESSMENT.
[2020-04-19] MEDS ORDERED: CATHETER FLUSH 10 ML SYR IV PRN (13:15)
[2020-04-19] MEDS: LACTATED RINGERS 1,000 ML IV SCH ×2 (13:49→17:22)
[2020-04-19] MEDS: ACETAMINOPHEN 500 MG TAB (TYLENOL) PO SCH ×2 (13:50→18:18)
[2020-04-19] MEDS: metroNIDAZOLE 500MG/100ML IVPB 100 ML IV SCH ×2 (14:06→20:35)
[2020-04-19] MEDS: KETOROLAC 15 MG/ML VIAL IVP SCH ×2 (14:07→20:35)
--- NOTE | 2020-04-19 15:23 | NUR ---
BEE CALLED AND GIVEN UPDATE ON CONDITION AND REVIEWED HOURS FOR CALLING TO CHECK ON HIS . PASSWORD ALSO OBTAINED.
[2020-04-19] MEDS: ceFAZolin 2 GM IV Premixed 50 ML IV SCH (17:22)
--- NOTE | 2020-04-19 17:36 | NUR ---
UP TO BSC FOR 2ND TIME. VOIDED 50 CC THIS TIME WITH BLADDER SCAN 250CC. DR. SLATER NOTIFIED.
--- NOTE | 2020-04-19 20:10 | OPERATIVE REPORT ---
DATE OF SERVICE: 04/19/2020 PREOPERATIVE DIAGNOSIS: Right colon cancer. POSTOPERATIVE DIAGNOSIS: Right colon cancer, pending pathology. PROCEDURE: Open right hemicolectomy. SURGEON: Ame Muir DO PROMOTION MANAGER: Darren Perla DO. ANESTHESIA: General endotracheal tube. SPECIMEN: Portion of terminal ileum, right colon and appendix. BLOOD LOSS: Less than 20 mL. FLUIDS: Per anesthesia. POSTOPERATIVE CONDITION: Stable. INDICATION FOR PROCEDURE: The patient is an 84-year-old female who unfortunately had a colonoscopy, which showed adenocarcinoma of the cecum. FINDINGS: The patient had an adenocarcinoma of the cecum could feel it from the outside and saw the tattooing. PROCEDURE NOTE: After informed consent was obtained, the patient was brought to the operating room, placed on the operating table in supine position. She was sterilely prepped and draped in normal fashion. A midline incision was made with #10 blade, carried down through the skin into subcutaneous tissue starting from just above the umbilicus to just below it. I made about approximately 6 or 7 cm incision then carried down through the subcutaneous tissue to the fascia with Bovie electrocautery, then incised the fascia with Bovie electrocautery, bluntly entered the abdomen, swept a finger around and protected the bowel and opened the fascia superiorly and inferiorly with Bovie electrocautery, able to grasp the cecum and pulled it up and then start coming along the pericolic gutter, coming along the white line of Toldt and with Bovie electrocautery carefully freeing this up to be able to rotate the right colon into the midline incision, able to come up right along the pericolic gutter up to the hepatic area. Pushed down the hepatic flexure and actually could see the duodenum, pushed this away from the area as well. Once we had delivered all this through the abdominal incision, I elected to do a twostep procedure, made a defect in the mesentery with Bovie electrocautery as well as blunt dissection and then just above this defect along the tinea and the colon and along the antimesenteric border of the small intestine made a small incision with Bovie electrocautery, then placed a KACIE one on either side of the small intestine and colon. Clamped together, and then held for 30 seconds, then fired thereby creating a [id number] enterocolotomy, removed this and then used a reload to clamp across the enterocolotomy to close this off. Clamped held for 30 seconds, then fired thereby closing this, had thrown a 3-0 Vicryl crotch stitch then started taking down the mesentery with the LigaSure, clamping, coagulating and transecting and in this fashion removing the portion of terminal ileum, appendix and most of the right colon. Passed this off the table. Switched gloves. Copiously irrigated with normal saline, suctioned this out. There was a good anastomosis between the small intestine and the colon and so at this point, then dropped this back in and then elected to close the incision with #1 double stranded PDS suture running from superior portion to inferior portion tying to itself and then closing the skin with leandra. Area was cleaned and dried and dressing placed. The patient tolerated the procedure and transferred to recovery room in stable condition. Sponge, instrument and needle count correct at the end of the case. Dr. Perla assisted in this case helping to make incisions, close incisions, identify anatomy, hold anatomy out of the way. Job ID: [id number] DocumentID: [id number] Dictated Date: 04/19/2020 18:57:47 Interior Wirer Date: 04/19/2020 20:09:28 Dictated By: AME MUIR DO
[2020-04-20] MEDS: ceFAZolin 2 GM IV Premixed 50 ML IV SCH (02:31)
[2020-04-20] MEDS: KETOROLAC 15 MG/ML VIAL IVP SCH ×3 (02:31→13:55)
[2020-04-20] MEDS: ACETAMINOPHEN 500 MG TAB (TYLENOL) PO SCH ×2 (02:31→10:55)
[2020-04-20] MEDS: LACTATED RINGERS 1,000 ML IV SCH ×2 (02:31→10:53)
[2020-04-20 04:15] VITALS: BP 127/59
[2020-04-20 07:36] VITALS: BP 163/81
--- NOTE | 2020-04-20 08:05 | Anesthesia-General Post-Op ---
General Patient Condition Mental Status/LOC: Same as Preop Cardiovascular: Satisfactory Nausea/Vomiting: Absent Respiratory: Satisfactory Pain: Controlled Complications: Absent Post Op Complications Complications None Follow Up Care/Instructions Patient Instructions None needed. Anesthesia/Patient Condition Patient Condition Patient is doing well, C/O minimal abdominal pain, so it appears the TAP block was helpful, stable vital signs, no apparent adverse anesthesia problems. DARLIN ROGERS DO Apr 20, 2020 08:05
--- NOTE | 2020-04-20 08:12 | Progress Note - Surgery ---
FLACO ARTHUR MED STUDENT 04/20/20 0812: Subjective Date Seen by a Provider: Apr 20, 2020 Time Seen by a Provider: 07:15 Subjective/Events-last exam Pt was seen and examined after having an open right hemicolectomy yesterday. She was confused to questioning. She stated that she had mild generalized abdominal pain tender to palpation. Pt was on room air and denied SOB. She has not had a BM since before having surgery. Review of Systems Gastrointestinal: Abdominal Pain (generalized) Neurological: Confusion Focused Exam Time of Focused Exam: 07:15 Respiratory: Chest Non Tender, Lungs Clear, Normal Breath Sounds, No Accessory Muscle Use, No Respiratory Distress Cardiovascular: Regular Rate, Rhythm, No Edema, No Gallop, No Murmur, Normal Peripheral Pulses Skin: normal color, warm/dry Objective Exam Vital Signs Date Time Temp Pulse Resp B/P (MAP) Pulse Ox O2 Delivery O2 Flow Rate FiO2 04/20/20 07:36 36.4 101 18 163/81 (108) 95 Room Air 04/20/20 04:15 36.4 96 18 127/59 (81) 100 Nasal Cannula 2.00 04/19/20 23:41 36.2 94 18 131/75 (93) 100 Nasal Cannula 2.00 04/19/20 21:00 Nasal Cannula 2.00 04/19/20 20:00 36.3 97 18 145/68 (93) 100 Nasal Cannula 2.00 04/19/20 16:26 35.6 98 16 150/78 (102) 100 Nasal Cannula 2.00 04/19/20 12:15 36.4 75 16 139/68 (91) 100 Nasal Cannula 2.00 04/19/20 12:15 100 Nasal Cannula 2.00 04/19/20 12:15 36.2 16 136/74 (94) 94 Nasal Cannula 2 04/19/20 12:15 Nasal Cannula 2 04/19/20 12:10 16 136/74 (94) 94 Nasal Cannula 2 04/19/20 12:10 Nasal Cannula 2 04/19/20 12:00 16 136/74 (94) 94 Nasal Cannula 2 04/19/20 11:55 Room Air 04/19/20 11:50 16 136/67 (90) 95 Room Air 04/19/20 11:40 Room Air 04/19/20 11:40 18 125/73 (90) 100 Room Air 04/19/20 11:30 20 148/76 (100) 100 OxyMask 2 04/19/20 11:25 OxyMask 5 04/19/20 11:20 22 150/78 (102) 100 OxyMask 5 04/19/20 11:10 OxyMask 04/19/20 11:10 36.2 18 154/78 (103) 100 OxyMask 8 04/19/20 09:10 36.2 86 22 139/75 (96) 97 Room Air I & O 04/20/20 07:00 Intake Total 2500 ml Output Total 500 ml Balance 2000 ml Capillary Refill : Less Than 3 Seconds General Appearance: No Apparent Distress, WD/WN HEENT: PERRL/EOMI Neck: Normal Inspection, Non Tender, Supple Respiratory: Chest Non Tender, Lungs Clear, Normal Breath Sounds, No Accessory Muscle Use, No Respiratory Distress Cardiovascular: Regular Rate, Rhythm, No Edema, No Gallop, No Murmur, Normal Peripheral Pulses Gastrointestinal: normal bowel sounds, distended (firm to palpation), tenderness (generalized) Extremity: Normal Capillary Refill, Normal Inspection, Non Tender, No Calf Tenderness, No Pedal Edema Neurologic/Psychiatric: Other (confused) Skin: Normal Color, Warm/Dry Lymphatic: No Adenopathy (cervical, axila, or inguinal) Results Lab Laboratory Tests 04/19/20 09:15: White Blood Count 4.2L, Red Blood Count 2.90L, Hemoglobin 7.1L, Hematocrit 24L, Mean Corpuscular Volume 84, Mean Corpuscular Hemoglobin 25, Mean Corpuscular Hemoglobin Concent 29L, Red Cell Distribution Width 18.8H, Platelet Count 414H, Mean Platelet Volume 8.4L, Immature Granulocyte % (Auto) 1, Neutrophils (%) (Auto) 57, Lymphocytes (%) (Auto) 28, Monocytes (%) (Auto) 11, Eosinophils (%) (Auto) 2, Basophils (%) (Auto) 2, Neutrophils # (Auto) 2.4, Lymphocytes # (Auto) 1.2, Monocytes # (Auto) 0.5, Eosinophils # (Auto) 0.1, Basophils # (Auto) 0.1, Immature Granulocyte # (Auto) 0.0 Assessment/Plan Assessment/Plan Assessment/Plan Assessment: Open right hemicolectomy performed 04/19 Plan: Encourage IS and ambulation continue pain medication as needed VICTORIANO SLATER DO 04/20/20 1558: Subjective Time Seen by a Provider: 15:41 Subjective/Events-last exam Pt seen and examined, denies abdominal pain. Tolerating clears but not flatus. Ambulating without difficulty. Review of Systems General: No Chills, No Night Sweats Pulmonary: No Dyspnea, No Cough Cardiovascular: No: Chest Pain Gastrointestinal: Abdominal Pain ("I can feel it but it doesn't hurt") Objective Exam General Appearance: No Apparent Distress, Thin HEENT: PERRL/EOMI Respiratory: Lungs Clear, Normal Breath Sounds, No Accessory Muscle Use, No Respiratory Distress Cardiovascular: Regular Rate, Rhythm, No Murmur Gastrointestinal: normal bowel sounds, distended (mildly), tenderness (very minimal with deep palpation) Assessment/Plan Assessment/Plan Assessment/Plan Open right hemicolectomy performed 04/19 PT is doing well, pain controlled and eating, wants to go home and states he can take care of her at home. Supervisory-Addendum Brief Verification & Attestation Participated in pt care: history, MDM, physical Personally performed: exam, history, MDM Care discussed with: Medical Student Procedures: n/a Verification and Attestation of Medical Student E/M Service A medical student performed and documented this service. I then reviewed and verified all information documented by the medical student and made modifications to such information, when appropriate. I personally performed a physical exam, medical decision making and then discussed any differences between the notes and made revisions as necessary to create one note. Victoriano Slater , 04/20/20 , 15:58 FLACO ARTHUR MED STUDENT Apr 20, 2020 08:12 VICTORIANO SLATER DO Apr 20, 2020 15:58
[2020-04-20] MEDS ORDERED: PANTOPRAZOLE 40 MG (PROTONIX) VIAL IVP SCH (09:00)
[2020-04-20] MEDS ORDERED: ENOXAPARIN 30 MG/0.3 ML (LOVENOX) SYR SC SCH (11:00)
[2020-04-20 11:02] VITALS: BP 153/67
--- NOTE | 2020-04-20 13:16 | NUR ---
JOHNATHAN UPDATED ON PT STATUS.
--- NOTE | 2020-04-20 13:19 | NUR ---
"RD ASSESSMENT PMHx: unknown MPH; s/p open R hemicolectomy PT INTERACTION: Received dietary consult for MST score. Note pt has AMS, per chart review. Note all diet information for nutrition assessment is per [place] VALDOVINOS or per chart review. [place] states current appetite is poor. Note avg PO intake PO intake <25% meals, per chart review. [place] states no issues with n/v/c/d that she is aware of, and that she has not had a BM yet. Note pt not currently on bowel regimen per chart review. Note unable to determine recent wt hx, per chart review. Given PO intake and wt hx, pt is at risk for malnutrition per ASPEN guidelines. Est. kcal needs: 0564-6466 kcal | 30-35 kcal/kg Est. Pro needs: 45-56 g Pro | 0.8-1.0 g Pro/kg PES STATEMENT: Inadequate oral intake (NI-2.1) related to loss of appetite, as evidenced by chart review. INTERVENTION: Continue with current diet order of Clear Liquid diet. Add Ensure Clear to meals TID for increased kcal intake. Provides 250 kcal and 8 g Pro per serving. Will continue to follow and reassess as pt needs, intake, and status change. S YVETTE LLOYD MS RD LD [phone] cell"
[2020-04-20] MEDS ORDERED: OMEP20CA18 PO (14:25)
--- NOTE | 2020-04-20 14:26 | NUR ---
SPOKE WITH THE PT (JOHNATHAN) AND WENT THRU THE EXT MED HISTORY TO COMPLETE THE MED REC IN SPEAKING WITH THE PT HE WAS NOT ABLE TO GIVE ME ANY SPECIFICS REGARDING THE PTS MEDICATIONS- ALENDRONATE 70MG IS LISTED ON THE EXT MED HISTORY BUT HE WAS NOT FAMILIAR WITH THIS MED AND SAYS SHE MUST NOT TAKE IT. OTC MEDS: NONE
--- NOTE | 2020-04-20 14:45 | NUR ---
Pt is Sikh but states it is not something that has been important to her and trevor has noo spiritual needs now other than to feel better and go home.
--- NOTE | 2020-04-20 15:59 | Discharge Inst-Surgical ---
Discharge Inst-Surgical Depart Medication/Instructions New, Converted or Re-Newed RX: Other (use home meds (Ibuprofen or Tylenol) for pain) Patient Instructions Follow up Appt: Make appointment for 1 week. [phone] Instructions: No lifting greater than 20 pounds. No strenuous activity. May shower in 24 hours, no tub bath or soaking. Use incentive spirometer at home as directed. No Smoking Skin/Wound Care: May remove bandages in am. You need to leave the Dermabond on incision it will fall off on it's own. Symptoms to Report: Appetite Changes, Extremity Discoloration, Numbness/Tingling, Swelling Increased, Bleeding Excessive, Eyesight Changes, Pain Increased, Urine Color Change, Constipation(Persistent), Fever over 101 degree F, Pain/Pressure in chest, Urinating Difficulty, Cough Up/Vomit Blood, Heart Beat Irreg/Pounding, Pain/Pressure in jaw, Cramps in feet or legs, Lightheadedness, Pain/Pressure in shoulder, Diarrhea(Persistent), Memory Changes Suddenly, Questions/Concerns, Weight gain consecutive days, Dizziness/Fainting, Nausea/Vomiting, Shortness of Breath, Weight gain over 2 pounds If questions or concerns contact your physician Or seek help at emergency department. Activity Activity as Tolerated: Yes Activity Instructions: Avoid Stress to Incision Diet Discharge Diet: No Restrictions Diet After 24 Hours: Clear Liquid if Nauseous If Any Problems/Questions/Issu: Contact Your Physician, Go to Emergency Room Skin/Wound Care Infection Signs and Symptoms: Increased Redness, Foul Odor of Wound, Increased Drainage, Skin Itchy or Has a Rash, Increased Swelling, Temperature Above 101 F Bathing Instructions: Shower Stitches/[place]/Dermabond Dis: Care of AME Fuentes DO Apr 20, 2020 15:59
[2020-04-20 16:00] VITALS: BP 141/70
== END 2020-04-20 17:07 | disposition home or self-care (01) | DRG 331 ==
LOC: SURG 08:48 → INTOOBSV 08:48 → 4TH 08:48 → OBSVTOIN 08:48 → UNDOADMOB 08:48 → SURG 08:49 → 4TH 08:49 → EDSTATUS 10:15 → 4TH 12:16 → SURG 12:16 → 4TH 12:16 → UNDODISIN 04-20 17:07
PROVIDERS: ADMIT Surgery; ATTEND Surgery
PROC: 0DTJ0ZZ Resection of Appendix, Open Approach (ICD-10-PCS; 2020-04-19)
PROC: 0DBB0ZZ Excision of Ileum, Open Approach (ICD-10-PCS; 2020-04-19)
PROC: 0DTF0ZZ Resection of Right Large Intestine, Open Approach (ICD-10-PCS; principal; 2020-04-19 10:14)
DX: C18.0 Malignant neoplasm of cecum (principal)
CPT/HCPCS: 36415; 82378; 85025; 86850; 86900; 86901; 87081

== ENCOUNTER 2020-04-22 09:57 | Inpatient (IN) | payer MEDICARE, OTHER ==
[~2020-04-22] VITALS: Ht 157 cm; Wt 53.0 kg
[~2020-04-22 09:57] MED LIST changes: +OMEP20CA18 PO
--- NOTE | 2020-04-22 11:13 | NUR ---
PT HAS DEMENTIA ET POOR HISTORIAN. INFO RECALLED.
--- NOTE | 2020-04-22 11:29 | NUR ---
PT UNABLE TO URINATE AT THIS TIME.
--- NOTE | 2020-04-22 11:50 | NUR ---
PT STILL UNABLE TO URINATE.
[2020-04-22 12:08] LABS: BILIRUBIN,URINE NEGATIVE (NEGATIVE); CLARITY,URINE CLEAR; COLOR,URINE YELLOW; GLUCOSE, URINE (UA) NEGATIVE (NEGATIVE); KETONES,URINE NEGATIVE (NEGATIVE); LEUKOCYTE ESTERASE ,URINE NEGATIVE (NEGATIVE); NITRITE,URINE NEGATIVE (NEGATIVE); PH,URINE 5.5 (5-9); PROTEIN,URINE TRACE (NEGATIVE)
--- NOTE | 2020-04-22 12:12 | ED Abdominal Pain ---
General Chief Complaint: - Urinary Stated Complaint: BLOOD IN URINE Nursing Triage Note: blood noted in urine by . Sx to remove abdominal mass with dr delcid. Sepsis Screen: No Definite Risk Source of Information: Patient Exam Limitations: No Limitations History of Present Illness Date Seen by Provider: Apr 22, 2020 Time Seen by Provider: 11:57 Initial Comments Patient presents to the ER by private conveyance from home with chief complaint she is having increasing pain in her abdomen related to a surgery. She is unable to relate what the surgery was about and is a overall poor historian. This morning she also noticed she had some pink-tinged urine but no dysuria fever chills nausea vomiting cough shortness of air. Dr. Delcid did resect right hemicolon on the , 3 days ago and discharged home yesterday. She returned to the ER with her . Patient's Sameer relates that she has dementia and he usually does the speaking for her. After her last surgery and being discharged home she has had quite a bit of blood out of her rectum increased pain and weakness. Allergies and Home Medications Allergies Uncoded Allergies: SULFA (Allergy, Unknown, 04/19/20) FOUND CORRECT ALLERGY SPELLING ON PHYSICIAN H&P Home Medications Anastrozole 1 Mg Tablet, 1 MG PO DAILY, (Reported) Levothyroxine Sodium 50 Mcg Tablet, 50 MCG PO DAILY, (Reported) Metformin HCl 500 Mg Tablet, 500 MG PO BID WITH MEALS, (Reported) Olmesartan Medoxomil 40 Mg Tablet, 40 MG PO DAILY, (Reported) Omeprazole 20 Mg Capsule.dr, 20 MG PO DAILY, (Reported) Simvastatin 20 Mg Tablet, 20 MG PO DAILY, (Reported) Patient Home Medication List Home Medication List Reviewed: Yes Review of Systems Review of Systems Constitutional: No chills, No diaphoresis EENTM: No Blurred Vision, No Double Vision Respiratory: Denies Cough, Denies Shortness of Air Cardiovascular: Denies Chest Pain, Denies Lightheadedness Gastrointestinal: See HPI, Abdominal Pain, Blood Streaked Stools; Denies Constipated, Denies Diarrhea Genitourinary: Denies Burning, Denies Discharge Musculoskeletal: No back pain, No joint pain All Other Systems Reviewed Negative Unless Noted: Yes Past Nrmzkzr-Qykpru-Ucpbiu Hx Patient Social History Alcohol Use: Denies Use Smoking Status: Never a Smoker Recent Infectious Disease Expo: No Recent Hopitalizations: No Past Medical History Surgeries: Yes (RECENT ABD WITH BRYON) Respiratory: No Cardiac: Yes Neurological: No : No Reproductive Disorders: No Sexually Transmitted Disease: No Gastrointestinal: No Musculoskeletal: No Endocrine: Yes Diabetes, Non-Insulin dep Hearing Impairment: Hard of Hearing, Hearing Aide Right, Hearing Aide Left Blood Disorders: No Physical Exam Vital Signs Vital Signs - First Documented 04/22/20 10:41 Temp 36.8 Pulse 107 Resp 22 B/P (MAP) 92/58 (69) Pulse Ox 97 O2 Delivery Room Air Capillary Refill : Less Than 3 Seconds Height/Weight/BMI Height: 5'2.00" Weight: 120lbs. 0.0oz. 54.227606gz; 23.00 BMI Method: General Appearance: WD/WN, mild distress HEENT: PERRL/EOMI, pharynx normal Neck: non-tender, normal inspection Respiratory: lungs clear, normal breath sounds, no respiratory distress, no accessory muscle use Cardiovascular: normal peripheral pulses, regular rate, rhythm Gastrointestinal: normal bowel sounds, non tender, soft Neurologic/Psychiatric: alert, normal mood/affect, oriented x 3 Progress/Results/Core Measures Results/Orders Lab Results Laboratory Tests Test 04/22/20 12:00 04/22/20 12:44 Range/Units Urine Color YELLOW Urine Clarity CLEAR Urine pH 5.5 5-9 Urine Specific [place] 1.025 H 1.016-1.022 Urine Protein TRACE H NEGATIVE Urine Glucose (UA) NEGATIVE NEGATIVE Urine Ketones NEGATIVE NEGATIVE Urine Nitrite NEGATIVE NEGATIVE Urine Bilirubin NEGATIVE NEGATIVE Urine Urobilinogen 0.2 < = 1.0 MG/DL Urine Leukocyte Esterase NEGATIVE NEGATIVE Urine RBC (Auto) NEGATIVE NEGATIVE Urine RBC NONE /HPF Urine WBC 0-2 /HPF Urine Squamous Epithelial Cells RARE /HPF Urine Crystals NONE /LPF Urine Bacteria TRACE /HPF Urine Casts PRESENT /LPF Urine Hyaline Casts 5-10 H /LPF Urine Mucus NEGATIVE /LPF Urine Culture Indicated NO White Blood Count 9.0 4.3-11.0 10^3/uL Red Blood Count 2.39 L 3.80-5.11 10^6/uL Hemoglobin 5.9 *L 11.5-16.0 g/dL Hematocrit 20 *L 35-52 % Mean Corpuscular Volume 84 80-99 fL Mean Corpuscular Hemoglobin 25 25-34 pg Mean Corpuscular Hemoglobin Concent 29 L 32-36 g/dL Red Cell Distribution Width 18.9 H 10.0-14.5 % Platelet Count 372 130-400 10^3/uL Mean Platelet Volume 8.9 L 9.0-12.2 fL Immature Granulocyte % (Auto) 1 % Neutrophils (%) (Auto) 88 H 42-75 % Lymphocytes (%) (Auto) 8 L 12-44 % Monocytes (%) (Auto) 4 0-12 % Eosinophils (%) (Auto) 0 0-10 % Basophils (%) (Auto) 0 0-10 % Neutrophils # (Auto) 7.9 H 1.8-7.8 10^3/uL Lymphocytes # (Auto) 0.7 L 1.0-4.0 10^3/uL Monocytes # (Auto) 0.3 0.0-1.0 10^3/uL Eosinophils # (Auto) 0.0 0.0-0.3 10^3/uL Basophils # (Auto) 0.0 0.0-0.1 10^3/uL Immature Granulocyte # (Auto) 0.1 0.0-0.1 10^3/uL Neutrophils % (Manual) 92 % Lymphocytes % (Manual) 5 % Monocytes % (Manual) 2 % Eosinophils % (Manual) 0 % Basophils % (Manual) 1 % Nucleated Red Blood Cells 1 Polychromasia SLIGHT Hypochromasia SLIGHT Poikilocytosis MODERATE Basophilic Stippling SLIGHT Anisocytosis SLIGHT Target Cells SLIGHT Tear Drop Cells SLIGHT Helmet Cells SLIGHT Elliptocytes SLIGHT Sodium Level 139 135-145 MMOL/L Potassium Level 4.7 3.6-5.0 MMOL/L Chloride Level 109 H 98-107 MMOL/L Carbon Dioxide Level 23 21-32 MMOL/L Anion Gap 7 5-14 MMOL/L Blood Urea Nitrogen 18 7-18 MG/DL Creatinine 0.82 0.60-1.30 MG/DL Estimat Glomerular Filtration Rate > 60 BUN/Creatinine Ratio 22 Glucose Level 148 H 70-105 MG/DL Calcium Level 8.8 8.5-10.1 MG/DL Corrected Calcium 9.4 8.5-10.1 MG/DL Total Bilirubin 0.5 0.1-1.0 MG/DL Aspartate Amino Transf (AST/SGOT) 16 5-34 U/L Alanine Aminotransferase (ALT/SGPT) 10 0-55 U/L Alkaline Phosphatase 29 L 40-136 U/L C-Reactive Protein High Sensitivity 1.33 H 0.00-0.50 MG/DL Total Protein 5.3 L 6.4-8.2 GM/DL Albumin 3.2 3.2-4.5 GM/DL My Orders Orders - JACKI PALMER Ua Culture If Indicated (04/22/20 09:58) Cbc With Automated Diff (04/22/20 12:12) Comprehensive Metabolic Panel (04/22/20 12:12) Hs C Reactive Protein (04/22/20 12:12) Type And Screen (04/22/20 12:12) Ct Abdomen/Pelvis W (04/22/20 12:12) Ed Iv/Invasive Line Start (04/22/20 12:12) Ns Iv 500 Ml (Sodium Chloride 0.9%) (04/22/20 12:15) Manual Differential (04/22/20 12:44) Iohexol Injection (Omnipaque 350 Mg/Ml 1 (04/22/20 13:30) Received Contrast (Hold Metformin- Contr (04/22/20 13:30) Sodium Chloride Flush (Catheter Flush Sy (04/22/20 13:30) Ns (Ivpb) (Sodium Chloride 0.9% Ivpb Bag (04/22/20 13:30) Fentanyl Injection (Sublimaze Injection (04/22/20 13:30) Pantoprazole Injection (Protonix Injecti (04/22/20 13:45) Red Cells Leukocytes Reduced (04/22/20 12:44) Medications Given in ED Current Medications Medications Dose Ordered Sig/Guicho Route Start Time Stop Time Status Last Admin Dose Admin Fentanyl Citrate 25 mcg ONCE ONCE IVP 04/22/20 13:30 04/22/20 13:31 DC 04/22/20 13:34 25 MCG Iohexol 100 ml ONCE ONCE IV 04/22/20 13:30 04/22/20 13:31 DC 04/22/20 13:47 74 ML Pantoprazole 40 mg ONCE ONCE IV 04/22/20 13:45 04/22/20 13:46 DC 04/22/20 14:47 40 MG Sodium Chloride 10 ml NEEDED PRN IV 04/22/20 13:30 04/22/20 13:48 10 ML Sodium Chloride 100 ml ONCE ONCE IV 04/22/20 13:30 04/22/20 13:31 DC 04/22/20 13:48 80 ML Sodium Chloride 500 ml @ 0 mls/hr Q0M ONCE IV 04/22/20 12:15 04/22/20 12:16 DC 04/22/20 12:47 500 MLS/HR Vital Signs/I&O 04/22/20 10:41 Temp 36.8 Pulse 107 Resp 22 B/P (MAP) 92/58 (69) Pulse Ox 97 O2 Delivery Room Air Blood Pressure Mean: 69 Progress Progress Note #1: Time: 12:15 Progress Note Plan to get some labs and give her 500 cc of normal saline as well as an IV contrasted CT of her abdomen and pelvis. She is claiming to have increasing pain status post hemicolectomy 3 days ago. She does have a history of a hemoglobin of 7.1 back on the . Type and screen. Her vitals are okay at this time with a good blood pressure 142/71. Urine was obtained by straight catheter. Progress Note #2: Time: 14:46 Progress Note Discussed the case with Sameer her when she first arrived and again discussed the case to let her spouse know the plan to keep her for a couple days to get blood and to treat her ileus. He is okay with the plan. After discussing her goals of care he would prefer to allow a natural if her heart were to stop beating. At this time she is a DNR/DNI. Diagnostic Imaging Diagonstic Imaging: CT Plain Films/CT/US/NM/MRI: abdomen, pelvis Comments [facility], [place] NAME: SHERRILL SMALLS [facility] REC#: [id number] PT STATUS: ADM IN : 1935 PHYSICIAN: JACKI PALMER MD ADMIT DATE: 04/22/20 Signed Date of Exam:04/22/20 CT ABDOMEN/PELVIS W PROCEDURE: CT abdomen and pelvis with contrast. TECHNIQUE: Multiple contiguous axial images were obtained through the abdomen and pelvis after administration of intravenous contrast. Auto Exposure Controls were utilized during the CT exam to meet ALARA standards for radiation dose reduction. All CT scans use one or more of the following dose optimizing techniques: automated exposure control, MA and/or KvP adjustment based on patient size and exam type or iterative reconstruction. INDICATION: Post hemicolectomy. Increased pain and bleeding. COMPARISON: None. FINDINGS: Mild linear atelectasis or scarring in the lung bases. Cardiomegaly is partially visualized. The liver, gallbladder, pancreas, spleen, adrenals, kidneys, collecting systems and bladder are unremarkable. Reproductive structures are grossly unremarkable. Right hemicolectomy. Small amount of free fluid dependently in the pelvis. No free intraperitoneal air is seen. Moderate colonic diverticulosis without evidence of active diverticulitis. Much of the small bowel is moderately distended to the level of the anastomosis. The more proximal small bowel is normal in caliber. No lymphadenopathy. No acute osseous findings. IMPRESSION: 1. Postoperative findings of a right hemicolectomy. 2. Moderate distention of much of the small bowel to the level of the anastomosis which appears widely patent. The more proximal small bowel is normal in caliber. Findings are most compatible with an ileus. There is a small amount of free fluid in the pelvis. 3. Moderate colonic diverticulosis without evidence of active diverticulitis. 4. Mild dependent atelectasis in the lung bases. Cardiomegaly. Dictated by: Dictated on workstation # [id number] Dict: 04/22/20 1408 Trans: 04/22/20 1620 [facility] [id number] Interpreted by: MARILY BLISS MD Electronically signed by: MARILY BLISS MD 04/22/20 1620 Reviewed: Reviewed by Me Departure Communication (Admissions) Time/Spoke to Admitting Phy: 14:30 Discussed the case with Dr. Perla and he agrees to admit to the floor for blood and management. Consult to medicine Time/Spoke to Consulting Phy: 14:30 Discussed the case with Dr. Huynh and she agrees to consult. She agrees her pantoprazole daily. Impression Primary Impression: Bright red blood per rectum Additional Impressions: Anemia Qualified Codes: D62 - Acute posthemorrhagic anemia Ileus following gastrointestinal surgery Status post right hemicolectomy Disposition: ADMITTED INPATIENT Condition: Stable Admissions Decision to Admit Reason: Admit from ER (General) Decision to Admit/Date: Apr 22, 2020 Time/Decision to Admit Time: 14:00 Departure-Patient Inst. Referrals: CB CARY DO (PCP/Family) Primary Care Physician JACKI PALMER Apr 22, 2020 12:12
[2020-04-22] MEDS ORDERED: NS IV 500 ML 500 ML IV ONE (12:15)
[2020-04-22 12:16] LABS: BACTERIA,URINE TRACE /HPF; SQUAMOUS EPITHELIAL CELL,UR RARE /HPF; WBC,URINE 0-2 /HPF
[2020-04-22 12:58] LABS: BASOPHILS % (AUTO) 0 % (0-10); EOSINOPHILS % (AUTO) 0 % (0-10); LYMPHOCYTES # (AUTO) 0.7 10^3/uL (1.0-4.0); LYMPHOCYTES % (AUTO) 8 % (12-44); MEAN CORPUSCULAR HEMOGLOBIN 25 pg (25-34); MEAN CORPUSCULAR HGB CONC 29 g/dL (32-36); MEAN CORPUSCULAR VOLUME 84 fL (80-99); MEAN PLATELET VOLUME 8.9 fL (9.0-12.2); MONOCYTES # (AUTO) 0.3 10^3/uL (0.0-1.0); MONOCYTES % (AUTO) 4 % (0-12); NEUTROPHILS # (AUTO) 7.9 10^3/uL (1.8-7.8); NEUTROPHILS % (AUTO) 88 % (42-75); PLATELET COUNT 372 10^3/uL (130-400)
[2020-04-22 13:03] LABS: HEMATOCRIT 20 % (35-52); HEMOGLOBIN 5.9 g/dL (11.5-16.0)
[2020-04-22 13:12] LABS: ALBUMIN 3.2 GM/DL (3.2-4.5); CHLORIDE 109 MMOL/L (98-107); POTASSIUM 4.7 MMOL/L (3.6-5.0); SODIUM 139 MMOL/L (135-145)
[2020-04-22 13:13] LABS: CALCIUM 8.8 MG/DL (8.5-10.1)
[2020-04-22 13:15] LABS: GLUCOSE 148 MG/DL (70-105); TOTAL PROTEIN 5.3 GM/DL (6.4-8.2)
[2020-04-22 13:16] LABS: BILIRUBIN,TOTAL 0.5 MG/DL (0.1-1.0); CARBON DIOXIDE 23 MMOL/L (21-32)
[2020-04-22 13:18] LABS: ALKALINE PHOSPHATASE 29 U/L (40-136); CREATININE SERUM 0.82 MG/DL (0.60-1.30); GFR ESTIMATED > 60
[2020-04-22 13:20] LABS: BUN/CREATININE RATIO 22
[2020-04-22 13:21] LABS: ALANINE AMINOTRANSFERASE 10 U/L (0-55)
[2020-04-22] MEDS ORDERED: NS 100 ML (IVPB) BAG IV ONE (13:30)
[2020-04-22] MEDS ORDERED: fentaNYL INJECTION 100 MCG/2 ML AMP IVP ONE (13:30)
[2020-04-22] MEDS ORDERED: IOHEXOL 350 MG/ML 100 ML (OMNIPAQUE 350) VIAL IV ONE (13:30)
[2020-04-22] MEDS ORDERED: HOLD METFORMIN - RECEIVED CONTRAST 20 ML VIAL IV SCH (13:30)
[2020-04-22] MEDS ORDERED: CATHETER FLUSH 10 ML SYR IV PRN (13:30)
[2020-04-22] MEDS ORDERED: PANTOPRAZOLE 40 MG (PROTONIX) VIAL IV ONE (13:45)
--- NOTE | 2020-04-22 14:24 | Diagnostic Imaging Report ---
PROCEDURE: CT abdomen and pelvis with contrast. TECHNIQUE: Multiple contiguous axial images were obtained through the abdomen and pelvis after administration of intravenous contrast. Auto Exposure Controls were utilized during the CT exam to meet ALARA standards for radiation dose reduction. All CT scans use one or more of the following dose optimizing techniques: automated exposure control, MA and/or KvP adjustment based on patient size and exam type or iterative reconstruction. INDICATION: Post hemicolectomy. Increased pain and bleeding. COMPARISON: None. FINDINGS: Mild linear atelectasis or scarring in the lung bases. Cardiomegaly is partially visualized. The liver, gallbladder, pancreas, spleen, adrenals, kidneys, collecting systems and bladder are unremarkable. Reproductive structures are grossly unremarkable. Right hemicolectomy. Small amount of free fluid dependently in the pelvis. No free intraperitoneal air is seen. Moderate colonic diverticulosis without evidence of active diverticulitis. Much of the small bowel is moderately distended to the level of the anastomosis. The more proximal small bowel is normal in caliber. No lymphadenopathy. No acute osseous findings. IMPRESSION: 1. Postoperative findings of a right hemicolectomy. 2. Moderate distention of much of the small bowel to the level of the anastomosis which appears widely patent. The more proximal small bowel is normal in caliber. Findings are most compatible with an ileus. There is a small amount of free fluid in the pelvis. 3. Moderate colonic diverticulosis without evidence of active diverticulitis. 4. Mild dependent atelectasis in the lung bases. Cardiomegaly. Dictated by: Dictated on workstation # [id number]
--- NOTE | 2020-04-22 14:38 | NUR ---
PT'S NOTIFIED OF ADMISSION.
[2020-04-22 14:55] LABS: BASOPHILS % (MANUAL) 1 %; EOSINOPHILS % (MANUAL) 0 %; LYMPHOCYTES % (MANUAL) 5 %; MONOCYTES % (MANUAL) 2 %; NEUTROPHILS % (MANUAL) 92 %; NUCLEATED RED BLOOD CELLS 1
[2020-04-22 14:56] LABS: ANISOCYTOSIS SLIGHT; HYPOCHROMASIA SLIGHT; POIKILOCYTOSIS MODERATE; POLYCHROMASIA SLIGHT; TARGET CELLS SLIGHT
[2020-04-22 14:57] LABS: ELLIPT/OVALOCYTES SLIGHT; HELMET/BITE CELLS SLIGHT; TEAR DROP CELLS SLIGHT
--- NOTE | 2020-04-22 15:11 | NUR ---
Hieu dozier in [facility] - 04/22/20 at 1517 by AMISHA ATTEMPT TO CALL REPORT ET NURSE DID NOT ANSWER.
--- NOTE | 2020-04-22 15:36 | History & Physical-Surgical ---
RADHA HENLEY MED STUDENT 04/22/20 1536: History of Present Illness History of Present Illness Reason for visit/HPI Pt is a 84 yr old F post op day 3 following right hemocolectomy. Pt presented to ER with c/o of increased abdominal pain, generalized weakness, and blood per rectum. Pt is poor historian due to dementia so is main historian. Pt received 1 unit PRBC for anemia (Hgb 5.9). CT of abdomen and pelvis w/t contrast indicated post op ileus and moderate distention of much of the small bowel to level of anastamosis. Date of Admission Apr 22, 2020 at 14:55 Date Seen by a Provider: Apr 22, 2020 Time Seen by a Provider: 15:36 I consulted on this patient on 04/22/20 15:31 Attending Physician Victoriano Muir DO Admitting Physician Binh Peterson DO Consult Allergies and Home Medications Allergies Uncoded Allergies: SULFA (Allergy, Unknown, 04/19/20) FOUND CORRECT ALLERGY SPELLING ON PHYSICIAN H&P Home Medications Anastrozole 1 Mg Tablet, 1 MG PO DAILY, (Reported) Levothyroxine Sodium 50 Mcg Tablet, 50 MCG PO DAILY, (Reported) Metformin HCl 500 Mg Tablet, 500 MG PO BID WITH MEALS, (Reported) Olmesartan Medoxomil 40 Mg Tablet, 40 MG PO DAILY, (Reported) Omeprazole 20 Mg Capsule.dr, 20 MG PO DAILY, (Reported) Simvastatin 20 Mg Tablet, 20 MG PO DAILY, (Reported) Past Yyjereq-Ynoijr-Jvumdt Hx Patient Social History Recent Hopitalizations: No Surgeries History of Surgeries: Yes (RECENT ABD WITH BRYON) Respiratory History of Respiratory Disorde: No Cardiovascular History of Cardiac Disorders: Yes Neurological History of Neurological Disord: No Reproductive System : No Hx Reproductive Disorders: No Sexually Transmitted Disease: No Gastrointestinal History of Gastrointestinal Di: No Musculoskeletal History of Musculoskeletal Dis: No Endocrine History of Endocrine Disorders: Yes Endocrine Disorders: Diabetes, Non-Insulin dep HEENT Hearing Impairment: Hard of Hearing, Hearing Aide Right, Hearing Aide Left Blood Transfusions History of Blood Disorders: No Physical Exam Vital Signs Vital Signs - First Documented 04/22/20 10:41 Temp 36.8 Pulse 107 Resp 22 B/P (MAP) 92/58 (69) Pulse Ox 97 O2 Delivery Room Air Capillary Refill : Less Than 3 Seconds Height, Weight, BMI Height: 5'2.00" Weight: 120lbs. 0.0oz. 54.864612lv; 23.00 BMI Method: General Appearance: No Apparent Distress, Chronically ill Neck: Non Tender, Supple Respiratory: Chest Non Tender, No Accessory Muscle Use, No Respiratory Distress Cardiovascular: Regular Rate, Rhythm Gastrointestinal: Tenderness (minimal), Other (Midline incision with bruising ) Rectal: Deferred Genital/Rectal: Other (Blood per rectum) Neurologic/Psychiatric: Alert; No Oriented x3; Disoriented Skin: Normal Color, Warm/Dry Lymphatic: No Adenopathy Data Review Labs Laboratory Tests 04/22/20 12:00: Urine Color YELLOW, Urine Clarity CLEAR, Urine pH 5.5, Urine Specific [place] 1.025H, Urine Protein TRACEH, Urine Glucose (UA) NEGATIVE, Urine Ketones NEGATIVE, Urine Nitrite NEGATIVE, Urine Bilirubin NEGATIVE, Urine Urobilinogen 0.2, Urine Leukocyte Esterase NEGATIVE, Urine RBC (Auto) NEGATIVE, Urine RBC NONE, Urine WBC 0-2, Urine Squamous Epithelial Cells RARE, Urine Crystals NONE, Urine Bacteria TRACE, Urine Casts PRESENT, Urine Hyaline Casts 5-10H, Urine Mucus NEGATIVE, Urine Culture Indicated NO 04/22/20 12:44: White Blood Count 9.0, Red Blood Count 2.39L, Hemoglobin 5.9*L, Hematocrit 20*L, Mean Corpuscular Volume 84, Mean Corpuscular Hemoglobin 25, Mean Corpuscular Hemoglobin Concent 29L, Red Cell Distribution Width 18.9H, Platelet Count 372, Mean Platelet Volume 8.9L, Immature Granulocyte % (Auto) 1, Neutrophils (%) (Auto) 88H, Lymphocytes (%) (Auto) 8L, Monocytes (%) (Auto) 4, Eosinophils (%) (Auto) 0, Basophils (%) (Auto) 0, Neutrophils # (Auto) 7.9H, Lymphocytes # (Auto) 0.7L, Monocytes # (Auto) 0.3, Eosinophils # (Auto) 0.0, Basophils # (Auto) 0.0, Immature Granulocyte # (Auto) 0.1, Neutrophils % (Manual) 92, Lymph ocytes % (Manual) 5, Monocytes % (Manual) 2, Eosinophils % (Manual) 0, Basophils % (Manual) 1, Nucleated Red Blood Cells 1, Polychromasia SLIGHT, Hypochromasia SLIGHT, Poikilocytosis MODERATE, Basophilic Stippling SLIGHT, Anisocytosis SLIGHT, Target Cells SLIGHT, Tear Drop Cells SLIGHT, Helmet Cells SLIGHT, Elliptocytes SLIGHT, Sodium Level 139, Potassium Level 4.7, Chloride Level 109H, Carbon Dioxide Level 23, Anion Gap 7, Blood Urea Nitrogen 18, Creatinine 0.82, Estimat Glomerular Filtration Rate > 60, BUN/Creatinine Ratio 22, Glucose Level 148H, Calcium Level 8.8, Corrected Calcium 9.4, Total Bilirubin 0.5, Aspartate Amino Transf (AST/SGOT) 16, Alanine Aminotransferase (ALT/SGPT) 10, Alkaline Phosphatase 29L, C-Reactive Protein High Sensitivity 1.33H, Total Protein 5.3L, Albumin 3.2 Assessment/Plan Assessment/Plan Assessment/Plan Anemia- Hgb 5.9 Post op ileus Small bowel distension Status post right hemicolectomy Brusing at incision site w/o infection Clear liquids Pain management 1 unit PRBC transfused in ER Transfuse as necessary Trend Hgb MIRANDA MOJICA DO 04/22/201939: History of Present Illness History of Present Illness Reason for visit/HPI CC: Blood in stool Patient is an 84 year old female who is POD 3 from right hemicolectomy. Patient having some blood per stool. Feeling weak. Not a good historian due to dementia. not with her at this time. Had ct scan suggestive of ileus and her hgb is 5.9. Allergies and Home Medications Allergies Uncoded Allergies: SULFA (Allergy, Unknown, 04/19/20) FOUND CORRECT ALLERGY SPELLING ON PHYSICIAN H&P Home Medications Anastrozole 1 Mg Tablet, 1 MG PO DAILY, (Reported) Levothyroxine Sodium 50 Mcg Tablet, 50 MCG PO DAILY, (Reported) Metformin HCl 500 Mg Tablet, 500 MG PO BID WITH MEALS, (Reported) Olmesartan Medoxomil 40 Mg Tablet, 40 MG PO DAILY, (Reported) Omeprazole 20 Mg Capsule.dr, 20 MG PO DAILY, (Reported) Simvastatin 20 Mg Tablet, 20 MG PO DAILY, (Reported) Patient Home Medication List Home Medication List Reviewed: Yes Past Ovcqout-Cjozqf-Zvecrf Hx Reviewed Nursing Assessment Reviewed/Agree w Nursing PMH: Yes Family Medical History Significant Family History: No Pertinent Family Hx Review of Systems ROS-Unable to Obtain: patient with dementia unable to provide. Constitutional: see HPI Physical Exam General Appearance: No Apparent Distress, Chronically ill HEENT: PERRL/EOMI, Normal ENT Inspection Neck: Full Range of Motion, Non Tender, Supple Respiratory: Chest Non Tender, No Accessory Muscle Use, No Respiratory Distress Cardiovascular: Regular Rate, Rhythm, No JVD Gastrointestinal: Distended (minimal), Tenderness (minimal at incision), Other (Midline incision with bruising, no signs of infection) Rectal: Deferred Back: Normal Inspection, No CVA Tenderness Neurologic/Psychiatric: Alert; No Oriented x3; Disoriented Skin: Warm/Dry, Pallor Lymphatic: No Adenopathy Assessment/Plan Assessment/Plan Admission Diagonsis Anemia- combination of chronic and postoperative Hgb 5.9 Post op ileus Status post right hemicolectomy Brusing at incision site w/o infection Admission Status: Observation Assessment/Plan Anemia- combination of chronic and postoperative Hgb 5.9 Post op ileus Status post right hemicolectomy Brusing at incision site w/o infection Clear liquids Pain management 1 unit PRBC transfused in ER Repeat labs in am. Supervisory-Addendum Brief Verification & Attestation Participated in pt care: history, MDM, physical Personally performed: exam, history, MDM, supervision of care Care discussed with: Medical Student Procedures: n/a Results interpretation: Verified all documentation Verification and Attestation of Medical Student E/M Service A medical student performed and documented this service in my presence. I reviewed and verified all information documented by the medical student and made modifications to such information, when appropriate. I personally performed the physical exam and medical decision making. Miranda Mojica, Apr 22, 2020,19:44 RADHA HENLEY MED STUDENT Apr 22, 2020 15:36 MIRANDA MOJICA DO Apr 22, 2020 19:40
[2020-04-22 16:00] VITALS: BP 147/78
--- NOTE | 2020-04-22 16:00 | NUR ---
PT ADMITTED TO ROOM 410. ORIENTED PT TO ROOM/CALL LIGHT. NON SLIP SOCKS APPLIED, BED ALARM ON. 1650- PT CALLED AND WAS ABLE TO ANSWER SOME OF THE ADMIT QUESTIONS FOR THE PT, SOME QUESTIONS WERE RECALLED.
[2020-04-22] MEDS ORDERED: PROMETHAZINE INJ 25 MG/ML (PHENERGAN) AMP IV PRN (17:00)
[2020-04-22] MEDS ORDERED: ACETAMINOPHEN 650 MG SUPP (TYLENOL) PR PRN (17:00)
[2020-04-22] MEDS ORDERED: ONDANSETRON 4 MG/2 ML (SDV) Z0FRAN IV PRN (17:00)
[2020-04-22] MEDS ORDERED: fentaNYL INJECTION 100 MCG/2 ML AMP IV PRN (17:00)
[2020-04-22] MEDS ORDERED: ACETAMINOPHEN 325 MG TABLET PO PRN (17:00)
[2020-04-22] MEDS ORDERED: NS IV 500 ML 500 ML ONE (17:14)
[2020-04-22 17:23] VITALS: BP 148/81
[2020-04-22] MEDS: LACTATED RINGERS 1,000 ML IV SCH (17:28)
[2020-04-22 17:43] VITALS: BP 150/80
[2020-04-22 20:14] VITALS: BP 146/86
[2020-04-22 21:46] VITALS: BP 161/81
[2020-04-23 00:05] VITALS: BP 137/94
[2020-04-23 00:20] VITALS: BP 151/90
[2020-04-23] MEDS: LACTATED RINGERS 1,000 ML IV SCH ×2 (03:16→04:09)
[2020-04-23 03:58] VITALS: BP 161/95
[2020-04-23 04:00] VITALS: BP 161/95
[2020-04-23 06:49] LABS: ALBUMIN 3.2 GM/DL (3.2-4.5)
[2020-04-23 06:50] LABS: CHLORIDE 111 MMOL/L (98-107); SODIUM 140 MMOL/L (135-145)
--- NOTE | 2020-04-23 06:50 | Progress Note - Surgery ---
RADHA HENLEY MED STUDENT 04/23/20 0649: Subjective Date Seen by a Provider: Apr 23, 2020 Time Seen by a Provider: 06:47 Subjective/Events-last exam Pt awake and laying in bed upon entry. Pt more alert and able to communicate/ follow commands today. Pt denies pain. Incision site remains tender and bruising around it. Pt unable to confirm or deny ROS. Night nurse stated that she slept most of the night and did well with her 2 transfusions. Pt also able to ambulate to bathroom well, notes no BM. Objective Exam Vital Signs Date Time Temp Pulse Resp B/P (MAP) Pulse Ox O2 Delivery O2 Flow Rate FiO2 04/23/20 04:00 36.5 92 20 161/95 (117) 98 Room Air 04/23/20 03:58 36.5 92 20 161/95 98 Room Air 04/23/20 03:58 36.5 92 20 161/95 98 Room Air 04/23/20 00:20 36.4 96 18 151/90 Room Air 04/23/20 00:20 36.4 96 18 151/90 97 Room Air 04/23/20 00:05 36.2 99 18 137/94 96 Room Air 04/23/20 00:05 36.2 99 18 137/94 (108) 99 Room Air 04/22/20 21:46 36.6 99 20 161/81 96 Room Air 04/22/20 20:14 36.8 112 18 146/86 (106) 97 Room Air 04/22/20 17:43 37.8 108 20 150/80 98 Room Air 04/22/20 17:23 37.5 105 20 148/81 99 Room Air 04/22/20 16:10 97 Room Air 04/22/20 16:00 36.6 112 18 147/78 (101) 97 Room Air 04/22/20 15:35 102 16 156/87 96 Room Air 04/22/20 10:41 36.8 107 22 92/58 (69) 97 Room Air I & O 04/23/20 07:00 Intake Total 1130 ml Balance 1130 ml Capillary Refill : Less Than 3 Seconds General Appearance: No Apparent Distress, Chronically ill HEENT: PERRL/EOMI, Moist Mucous Membranes Neck: Full Range of Motion, Non Tender, Supple Respiratory: Lungs Clear, Normal Breath Sounds, No Accessory Muscle Use, No Respiratory Distress Cardiovascular: Regular Rate, Rhythm, No Edema Gastrointestinal: normal bowel sounds, non tender, soft Extremity: Normal Inspection, No Pedal Edema Neurologic/Psychiatric: Alert, Disoriented Skin: Warm/Dry, Pallor Lymphatic: No Adenopathy Results Lab Laboratory Tests 04/22/20 12:00: Urine Color YELLOW, Urine Clarity CLEAR, Urine pH 5.5, Urine Specific [place] 1.025H, Urine Protein TRACEH, Urine Glucose (UA) NEGATIVE, Urine Ketones NEGATIVE, Urine Nitrite NEGATIVE, Urine Bilirubin NEGATIVE, Urine Urobilinogen 0.2, Urine Leukocyte Esterase NEGATIVE, Urine RBC (Auto) NEGATIVE, Urine RBC NONE, Urine WBC 0-2, Urine Squamous Epithelial Cells RARE, Urine Crystals NONE, Urine Bacteria TRACE, Urine Casts PRESENT, Urine Hyaline Casts 5-10H, Urine Mucus NEGATIVE, Urine Culture Indicated NO 04/22/20 12:44: White Blood Count 9.0, Red Blood Count 2.39L, Hemoglobin 5.9*L, Hematocrit 20*L, Mean Corpuscular Volume 84, Mean Corpuscular Hemoglobin 25, Mean Corpuscular Hemoglobin Concent 29L, Red Cell Distribution Width 18.9H, Platelet Count 372, Mean Platelet Volume 8.9L, Immature Granulocyte % (Auto) 1, Neutrophils (%) (Auto) 88H, Lymphocytes (%) (Auto) 8L, Monocytes (%) (Auto) 4, Eosinophils (%) (Auto) 0, Basophils (%) (Auto) 0, Neutrophils # (Auto) 7.9H, Lymphocytes # (Auto) 0.7L, Monocytes # (Auto) 0.3, Eosinophils # (Auto) 0.0, Basophils # (Auto) 0.0, Immature Granulocyte # (Auto) 0.1, Neutrophils % (Manual) 92, Lym phocytes % (Manual) 5, Monocytes % (Manual) 2, Eosinophils % (Manual) 0, Basophils % (Manual) 1, Nucleated Red Blood Cells 1, Polychromasia SLIGHT, Hypochromasia SLIGHT, Poikilocytosis MODERATE, Basophilic Stippling SLIGHT, Anisocytosis SLIGHT, Target Cells SLIGHT, Tear Drop Cells SLIGHT, Helmet Cells SLIGHT, Elliptocytes SLIGHT, Sodium Level 139, Potassium Level 4.7, Chloride Level 109H, Carbon Dioxide Level 23, Anion Gap 7, Blood Urea Nitrogen 18, Creatinine 0.82, Estimat Glomerular Filtration Rate > 60, BUN/Creatinine Ratio 22, Glucose Level 148H, Calcium Level 8.8, Corrected Calcium 9.4, Total Bilirubin 0.5, Aspartate Amino Transf (AST/SGOT) 16, Alanine Aminotransferase (ALT/SGPT) 10, Alkaline Phosphatase 29L, C-Reactive Protein High Sensitivity 1.33H, Total Protein 5.3L, Albumin 3.2 04/23/20 06:11: Assessment/Plan Assessment/Plan Assessment/Plan Anemia- combination of chronic and postoperative Hgb 8.7 Post op ileus Status post right hemicolectomy Brusing at incision site w/o infection Clear liquids Pain management 1 unit PRBC transfused in ER (04/22) and on the floor (04/23) Repeat labs VICTORIANO MUIR DO 04/23/20 1234: Subjective Time Seen by a Provider: 12:04 Subjective/Events-last exam Pt seen and examined, no new complaints. Feels stronger and would like to go home. Review of Systems General: No Chills; Fatigue Pulmonary: No Dyspnea, No Cough Cardiovascular: No: Chest Pain, Palpitations Gastrointestinal: No: Nausea, Vomiting, Abdominal Pain Objective Exam General Appearance: No Apparent Distress, Thin HEENT: PERRL/EOMI, Moist Mucous Membranes Respiratory: Lungs Clear, Normal Breath Sounds, No Accessory Muscle Use, No Respiratory Distress Cardiovascular: Regular Rate, Rhythm, No Murmur Gastrointestinal: non tender, soft Assessment/Plan Assessment/Plan Assessment/Plan Anemia- combination of chronic and postoperative Hgb 8.7 Status post right hemicolectomy Bruising at incision site w/o infection Increase diet as tolerated. Pt's Hg was 7.1 when surgery was done and a little bit of bleeding is normal after entero-colonic anastomosis. Pt looks like she is doing much better today and will D/C her home. Supervisory-Addendum Brief Verification & Attestation Participated in pt care: history, MDM, physical Personally performed: exam, history, MDM Care discussed with: Medical Student Procedures: n/a Verification and Attestation of Medical Student E/M Service A medical student performed and documented this service. I then reviewed and verified all information documented by the medical student and made modifications to such information, when appropriate. I personally performed a physical exam, medical decision making and then discussed any differences between the notes and made revisions as necessary to create one note. Victoriano Muir , 04/23/20 , 12:34 RADHA HENLEY MED STUDENT Apr 23, 2020 06:49 VICTORIANO MUIR DO Apr 23, 2020 12:34
[2020-04-23 06:51] LABS: CALCIUM 8.4 MG/DL (8.5-10.1)
[2020-04-23 06:52] LABS: GLUCOSE 119 MG/DL (70-105); TOTAL PROTEIN 5.6 GM/DL (6.4-8.2)
[2020-04-23 06:53] LABS: CARBON DIOXIDE 21 MMOL/L (21-32)
[2020-04-23 06:54] LABS: BASOPHILS # (AUTO) 0.1 10^3/uL (0.0-0.1); BASOPHILS % (AUTO) 1 % (0-10); BILIRUBIN,TOTAL 0.8 MG/DL (0.1-1.0); EOSINOPHILS # (AUTO) 0.2 10^3/uL (0.0-0.3); EOSINOPHILS % (AUTO) 2 % (0-10); HEMATOCRIT 27 % (35-52); LYMPHOCYTES # (AUTO) 1.2 10^3/uL (1.0-4.0); LYMPHOCYTES % (AUTO) 15 % (12-44); MEAN CORPUSCULAR HEMOGLOBIN 26 pg (25-34); MEAN CORPUSCULAR HGB CONC 32 g/dL (32-36); MEAN CORPUSCULAR VOLUME 82 fL (80-99); MEAN PLATELET VOLUME 8.9 fL (9.0-12.2); MONOCYTES # (AUTO) 0.7 10^3/uL (0.0-1.0); MONOCYTES % (AUTO) 9 % (0-12); NEUTROPHILS # (AUTO) 5.4 10^3/uL (1.8-7.8); NEUTROPHILS % (AUTO) 71 % (42-75); PLATELET COUNT 291 10^3/uL (130-400); WHITE BLOOD COUNT 7.5 10^3/uL (4.3-11.0)
[2020-04-23 06:55] LABS: ALKALINE PHOSPHATASE 30 U/L (40-136)
[2020-04-23 06:56] LABS: CREATININE SERUM 0.68 MG/DL (0.60-1.30); GFR ESTIMATED > 60; HEMOGLOBIN 8.7 g/dL (11.5-16.0)
[2020-04-23 06:57] LABS: BUN/CREATININE RATIO 18
[2020-04-23 06:59] LABS: ALANINE AMINOTRANSFERASE 10 U/L (0-55)
[2020-04-23] MEDS ORDERED: FLU QUAD HIGH DOSE 240 MCG/0.7 ML 2020-21 (FLUZONE) IM ONE (07:45)
[2020-04-23] MEDS ORDERED: hydrALAZINE (APESOLINE) 20 MG/ML VIAL IV PRN (07:45)
[2020-04-23 08:00] VITALS: BP 165/84
[2020-04-23] MEDS ORDERED: PANTOPRAZOLE 40 MG (PROTONIX) VIAL IV SCH (09:00)
--- NOTE | 2020-04-23 09:50 | NUR ---
Pt is [employer] and declines sacraments. Telephone Appointment Clerk offered blessing.
[2020-04-23] MEDS ORDERED: inSUlin ASPART (NovoLOG) 1 UNIT/0.01 ML (CHARGE PER UNIT) SC SCH (11:00)
[2020-04-23] MEDS ORDERED: ACET325T38 PO (11:22)
[2020-04-23] MEDS ORDERED: ALEN70TA80 PO (11:22)
--- NOTE | 2020-04-23 11:43 | NUR ---
I SPOKE WITH THE PATIENT AND HER AND WENT THROUGH THE EXTERNAL MED HISTORY TO COMPLETE THIS MED REC. PT AND ARE UNSURE OF WHAT DAY SHE IS SUPPOSED TO TAKE ALENDRONATE. PT AND BOTH SEEM CONFUSED. OTC: TYLENOL
--- NOTE | 2020-04-23 11:50 | Consultation - Hospitalist ---
HPI History of Present Illness: HPI/Chief Complaint Salma Jane is an 84-year-old female with PMH HTN, HLD, hypothyroidism, T2DM, colon adenocarcinoma, who presented with abdominal pain and hematochezia. She underwent a hemicolectomy for colon adenocarcinoma about a week ago. She is a poor historian due to her dementia. Her is at the bedside and assist with providing history. She believed that she had been having blood in her urine, but he thinks it was bloody stools. She denies any fevers or chills. She denies any shortness of breath or cough. She denies any chest pain. She denies any nausea or vomiting. She denies any dysuria. Source: patient Exam Limitations: no limitations Date Seen 04/23/20 Attending Physician Victoriano Muir DO PCP Binh Peterson DO Referring Physician Date of Admission Apr 22, 2020 at 14:55 Home Medications & Allergies Home Medications Reviewed patient Home Medication Reconciliation performed by pharmacy medication reconciliations sterile processing technician and/or nursing. Patients Allergies have been reviewed. Allergies Allergies Uncoded Allergies SULFA ( Allergy, Unknown, 04/19/20) FOUND CORRECT ALLERGY SPELLING ON PHYSICIAN H&P Past Jyiifpm-Tspjsq-Tmeuum Hx Past Med/Social Hx: Reviewed Nursing Past Med/Soc Hx Patient Social History Alcohol Use: Denies Use Smoking Status: Never a Smoker Recent Foreign Travel: No Contact w/other who traveled: No Recent Hopitalizations: No Recent Infectious Disease Expo: No Past Medical History : No Reproductive: No Sexually Transmitted Disease: No Endocrine: Diabetes, Non-Insulin dep Hearing Impairment: Hard of Hearing, Hearing Aide Right, Hearing Aide Left History of Blood Disorders: No Family History No Pertinent Family Hx Review of Systems Constitutional: no symptoms reported, see HPI Physical Exam Physical Exam Vital Signs Vital Signs - First Documented 04/22/20 10:41 Temp 36.8 Pulse 107 Resp 22 B/P (MAP) 92/58 (69) Pulse Ox 97 O2 Delivery Room Air Capillary Refill : Less Than 3 SecondsLess Than 3 Seconds Height, Weight, BMI Height: 5'2.00" Weight: 120lbs. 0.0oz. 54.285781br; 21.50 BMI Method: General Appearance: No Apparent Distress, Chronically ill HEENT: PERRL/EOMI, Pharynx Normal Neck: Normal Inspection, Supple Respiratory: Lungs Clear, Normal Breath Sounds, No Respiratory Distress Cardiovascular: Regular Rate, Rhythm, No Edema, No Murmur Gastrointestinal: Normal Bowel Sounds, Soft, Tenderness Extremity: Normal Inspection, Non Tender, No Pedal Edema Neurologic/Psychiatric: Alert, Disoriented Skin: Normal Color, Warm/Dry, Pallor Lymphatic: No Adenopathy Results Results/Procedures Labs Laboratory Tests 04/22/20 12:44 04/23/20 06:11 Patient resulted labs reviewed. Imaging: Reviewed Imaging Report Assessment/Plan Assessment and Plan Assess & Plan/Chief Complaint Postoperative anemia Status post hemicolectomy Colon adenocarcinoma Postoperative ileus Surgery primary Hgb 5.9 on arrival s/p 2 units PRBC Hgb 8.7 this morning No ongoing hematochezia Clear liquid diet Dementia Avoid delirium triggers at bedside HTN HLD Hypothyroidism Continue home meds T2DM Hold metformin DVT prophylaxis: held due to bleeding Diagnosis/Problems Diagnosis/Problems (1) Postoperative anemia Status: Acute (2) Bright red blood per rectum Status: Acute (3) Status post right hemicolectomy Status: Acute (4) Carcinoma of cecum Status: Acute (5) Ileus following gastrointestinal surgery Status: Acute (6) Dementia Status: Chronic (7) HTN (hypertension) Status: Chronic (8) HLD (hyperlipidemia) Status: Chronic (9) T2DM (type 2 diabetes mellitus) Status: Chronic (10) Hypothyroidism Status: Chronic ANNABELLA LAFLEUR MD Apr 23, 2020 11:50
--- NOTE | 2020-04-23 12:37 | Discharge Inst-Surgical ---
Discharge Inst-Surgical Depart Medication/Instructions New, Converted or Re-Newed RX: Other Patient Instructions Follow up Appt: Make appointment for 1 week. [phone] Instructions: No lifting greater than 20 pounds. No strenuous activity. May shower in 24 hours, no tub bath or soaking. Use incentive spirometer at home as directed. No Smoking Skin/Wound Care: May remove bandages in am. You need to leave the Dermabond on incision it will fall off on it's own. Symptoms to Report: Appetite Changes, Extremity Discoloration, Numbness/Tingling, Swelling Increased, Bleeding Excessive, Eyesight Changes, Pain Increased, Urine Color Change, Constipation(Persistent), Fever over 101 degree F, Pain/Pressure in chest, Urinating Difficulty, Cough Up/Vomit Blood, Heart Beat Irreg/Pounding, Pain/Pressure in jaw, Cramps in feet or legs, Lightheadedness, Pain/Pressure in shoulder, Diarrhea(Persistent), Memory Changes Suddenly, Questions/Concerns, Weight gain consecutive days, Dizziness/Fainting, Nausea/Vomiting, Shortness of Breath, Weight gain over 2 pounds If questions or concerns contact your physician Or seek help at emergency department. Activity Activity as Tolerated: Yes Activity Instructions: Avoid Stress to Incision Diet Discharge Diet: No Restrictions Diet After 24 Hours: Clear Liquid if Nauseous If Any Problems/Questions/Issu: Contact Your Physician, Go to Emergency Room Skin/Wound Care Infection Signs and Symptoms: Increased Redness, Foul Odor of Wound, Increased Drainage, Skin Itchy or Has a Rash, Increased Swelling, Temperature Above 101 F Bathing Instructions: Shower Stitches/[place]/Dermabond Dis: Care of AME Fuentes DO Apr 23, 2020 12:36
--- NOTE | 2020-04-23 13:16 | NUR ---
RX AND INST TO AND VERBALIZED UNDERSTANDING. DC'D PER WC.
--- NOTE | 2020-04-23 13:25 | NUR ---
Received dietary consult for MST score. Note pt has discharged at this time. Octaviano Joshi, MS RD LD
[2020-04-24] MEDS ORDERED: ANASTROZOLE 1 MG TAB (ARIMIDEX) PO SCH (09:00)
[2020-04-24] MEDS ORDERED: OMEPRAZOLE 20 MG (PriLOSEC) CAP NON-FORMULARY PO SCH (09:00)
[2020-04-24] MEDS ORDERED: LEVOTHYROXINE 50 MCG (LEVOTHROID) TAB PO SCH (09:00)
[2020-04-24] MEDS ORDERED: SIMvastatin 20 MG (ZOCOR) TAB PO SCH (09:00)
[2020-04-24] MEDS ORDERED: NON-FORMULARY MEDICATION 1 EA EA (Olmesartan Medoxomil 40 MG) PO SCH (09:00)
== END 2020-04-23 13:17 | disposition home or self-care (01) | DRG 812 ==
LOC: EDUNIT# 09:57 → ER 09:58 → 4TH 14:55
PROVIDERS: ADMIT Surgery; ATTEND Surgery
DX: D64.9 Anemia, unspecified (principal); K56.7 Ileus, unspecified; F03.90 Unspecified dementia, unspecified severity, without behavioral disturbance, psychotic disturbance, mood disturbance, and anxiety; I10 Essential (primary) hypertension; Z66 Do not resuscitate; E78.5 Hyperlipidemia, unspecified; E03.9 Hypothyroidism, unspecified; E11.9 Type 2 diabetes mellitus without complications; Z85.038 Personal history of other malignant neoplasm of large intestine; Z90.49 Acquired absence of other specified parts of digestive tract
CPT/HCPCS: 36415; 74177; 80053; 81000; 82962; 85007; 85025; 85027; 86141; 86850; 86900; 86901; 86920

== ENCOUNTER → 2020-05-17 | Outpatient (CLI) | payer MEDICARE, OTHER ==
[~2020-05-17] MED LIST changes: +ACET325T38 PO; +ALEN70TA80 PO
[2020-05-17 11:06] LABS: BASOPHILS # (AUTO) 0.1 10^3/uL (0.0-0.1); BASOPHILS % (AUTO) 2 % (0-10); EOSINOPHILS # (AUTO) 0.3 10^3/uL (0.0-0.3); EOSINOPHILS % (AUTO) 5 % (0-10); HEMATOCRIT 32 % (35-52); HEMOGLOBIN 9.6 g/dL (11.5-16.0); LYMPHOCYTES # (AUTO) 2.1 10^3/uL (1.0-4.0); LYMPHOCYTES % (AUTO) 29 % (12-44); MEAN CORPUSCULAR HEMOGLOBIN 26 pg (25-34); MEAN CORPUSCULAR HGB CONC 30 g/dL (32-36); MEAN CORPUSCULAR VOLUME 88 fL (80-99); MEAN PLATELET VOLUME 9.4 fL (9.0-12.2); MONOCYTES # (AUTO) 0.7 10^3/uL (0.0-1.0); MONOCYTES % (AUTO) 10 % (0-12); NEUTROPHILS # (AUTO) 3.9 10^3/uL (1.8-7.8); NEUTROPHILS % (AUTO) 54 % (42-75); PLATELET COUNT 405 10^3/uL (130-400); WHITE BLOOD COUNT 7.2 10^3/uL (4.3-11.0)
[2020-05-17 11:28] LABS: BILIRUBIN,TOTAL 0.4 MG/DL (0.1-1.0); CREATININE SERUM 0.9 MG/DL (0.60-1.30); POTASSIUM 4.6 MMOL/L (3.6-5.0); TOTAL PROTEIN 6.9 GM/DL (6.4-8.2)
== END ==
LOC: ONC 10:49
PROVIDERS: ATTEND Internal Medicine Hematology & Oncology
DX: C18.9 Malignant neoplasm of colon, unspecified (principal); D50.9 Iron deficiency anemia, unspecified; N64.89 Other specified disorders of breast; Z85.3 Personal history of malignant neoplasm of breast; Z90.12 Acquired absence of left breast and nipple; Z90.49 Acquired absence of other specified parts of digestive tract
CPT/HCPCS: 80053; 82378; 82728; 83540; 85025; G0463; 99213

== ENCOUNTER → 2020-08-09 | Outpatient (CLI) | payer MEDICARE, OTHER ==
[2020-08-09 14:02] LABS: BASOPHILS # (AUTO) 0.1 10^3/uL (0.0-0.1); BASOPHILS % (AUTO) 1 % (0-10); EOSINOPHILS # (AUTO) 0.3 10^3/uL (0.0-0.3); EOSINOPHILS % (AUTO) 3 % (0-10); HEMATOCRIT 35 % (35-52); HEMOGLOBIN 11.1 g/dL (11.5-16.0); LYMPHOCYTES # (AUTO) 2.2 10^3/uL (1.0-4.0); LYMPHOCYTES % (AUTO) 23 % (12-44); MEAN CORPUSCULAR HEMOGLOBIN 31 pg (25-34); MEAN CORPUSCULAR HGB CONC 32 g/dL (32-36); MEAN CORPUSCULAR VOLUME 96 fL (80-99); MEAN PLATELET VOLUME 8.9 fL (9.0-12.2); MONOCYTES # (AUTO) 0.7 10^3/uL (0.0-1.0); MONOCYTES % (AUTO) 8 % (0-12); NEUTROPHILS # (AUTO) 6.1 10^3/uL (1.8-7.8); NEUTROPHILS % (AUTO) 65 % (42-75); PLATELET COUNT 293 10^3/uL (130-400); WHITE BLOOD COUNT 9.4 10^3/uL (4.3-11.0)
[2020-08-09 14:22] LABS: ALBUMIN 4.4 GM/DL (3.2-4.5); BILIRUBIN,TOTAL 0.4 MG/DL (0.1-1.0); CALCIUM 10.2 MG/DL (8.5-10.1); CREATININE SERUM 1.2 MG/DL (0.60-1.30); POTASSIUM 3.8 MMOL/L (3.6-5.0); TOTAL PROTEIN 7.8 GM/DL (6.4-8.2)
== END ==
LOC: ONC 13:50
PROVIDERS: ATTEND Internal Medicine Hematology & Oncology
DX: C18.9 Malignant neoplasm of colon, unspecified (principal); C50.412 Malignant neoplasm of upper-outer quadrant of left female breast; D50.9 Iron deficiency anemia, unspecified; Z90.12 Acquired absence of left breast and nipple; Z90.49 Acquired absence of other specified parts of digestive tract
CPT/HCPCS: 80053; 82378; 82728; 83540; 83550; 85025; G0463; 99213

== ENCOUNTER → 2020-11-01 | Outpatient (CLI) | payer MEDICARE, OTHER ==
[2020-11-01 15:01] LABS: BASOPHILS # (AUTO) 0.1 10^3/uL (0.0-0.1); BASOPHILS % (AUTO) 2 % (0-10); EOSINOPHILS # (AUTO) 0.1 10^3/uL (0.0-0.3); EOSINOPHILS % (AUTO) 2 % (0-10); HEMATOCRIT 39 % (35-52); HEMOGLOBIN 12.5 g/dL (11.5-16.0); LYMPHOCYTES # (AUTO) 2.7 10^3/uL (1.0-4.0); LYMPHOCYTES % (AUTO) 43 % (12-44); MEAN CORPUSCULAR HEMOGLOBIN 35 pg (25-34); MEAN CORPUSCULAR HGB CONC 32 g/dL (32-36); MEAN CORPUSCULAR VOLUME 110 fL (80-99); MEAN PLATELET VOLUME 8.7 fL (9.0-12.2); MONOCYTES # (AUTO) 0.5 10^3/uL (0.0-1.0); MONOCYTES % (AUTO) 7 % (0-12); NEUTROPHILS # (AUTO) 2.9 10^3/uL (1.8-7.8); NEUTROPHILS % (AUTO) 46 % (42-75); PLATELET COUNT 245 10^3/uL (130-400); WHITE BLOOD COUNT 6.2 10^3/uL (4.3-11.0)
[2020-11-01 15:22] LABS: ALBUMIN 4.5 GM/DL (3.2-4.5); BILIRUBIN,TOTAL 0.5 MG/DL (0.1-1.0); CALCIUM 10.6 MG/DL (8.5-10.1); CREATININE SERUM 1.11 MG/DL (0.60-1.30); POTASSIUM 3.9 MMOL/L (3.6-5.0); TOTAL PROTEIN 7.9 GM/DL (6.4-8.2)
== END ==
LOC: ONC 14:47
PROVIDERS: ATTEND Internal Medicine Hematology & Oncology
DX: C18.9 Malignant neoplasm of colon, unspecified (principal); C50.912 Malignant neoplasm of unspecified site of left female breast; D50.8 Other iron deficiency anemias; Z90.49 Acquired absence of other specified parts of digestive tract
CPT/HCPCS: 80053; 85025

== ENCOUNTER 2021-02-13 15:11 | Inpatient (IN) | payer MEDICARE, OTHER ==
[~2021-02-13] VITALS: Ht 160 cm; Wt 45.0 kg
[2021-02-13 16:46] LABS: BASOPHILS # (AUTO) 0.1 10^3/uL (0.0-0.1); BASOPHILS % (AUTO) 1 % (0-10); EOSINOPHILS # (AUTO) 0.2 10^3/uL (0.0-0.3); EOSINOPHILS % (AUTO) 3 % (0-10); HEMATOCRIT 35 % (35-52); HEMOGLOBIN 11.2 g/dL (11.5-16.0); LYMPHOCYTES # (AUTO) 1.3 10^3/uL (1.0-4.0); LYMPHOCYTES % (AUTO) 17 % (12-44); MEAN CORPUSCULAR HEMOGLOBIN 37 pg (25-34); MEAN CORPUSCULAR HGB CONC 32 g/dL (32-36); MEAN CORPUSCULAR VOLUME 115 fL (80-99); MEAN PLATELET VOLUME 9.5 fL (9.0-12.2); MONOCYTES # (AUTO) 0.8 10^3/uL (0.0-1.0); MONOCYTES % (AUTO) 11 % (0-12); NEUTROPHILS # (AUTO) 4.9 10^3/uL (1.8-7.8); NEUTROPHILS % (AUTO) 68 % (42-75); PLATELET COUNT 274 10^3/uL (130-400); WHITE BLOOD COUNT 7.2 10^3/uL (4.3-11.0)
[2021-02-13 17:04] LABS: ALBUMIN 3.9 GM/DL (3.2-4.5); CHLORIDE 117 MMOL/L (98-107); POTASSIUM 4.9 MMOL/L (3.6-5.0); SODIUM 140 MMOL/L (135-145)
[2021-02-13 17:06] LABS: CALCIUM 10.8 MG/DL (8.5-10.1)
[2021-02-13 17:07] LABS: GLUCOSE 140 MG/DL (70-105); TOTAL PROTEIN 6.9 GM/DL (6.4-8.2)
[2021-02-13 17:08] LABS: CARBON DIOXIDE 12 MMOL/L (21-32)
[2021-02-13 17:09] LABS: BILIRUBIN,TOTAL 0.6 MG/DL (0.1-1.0)
[2021-02-13 17:10] LABS: ALKALINE PHOSPHATASE 37 U/L (40-136); CREATININE SERUM 2.06 MG/DL (0.60-1.30); GFR ESTIMATED 23
[2021-02-13 17:11] LABS: BUN/CREATININE RATIO 27
[2021-02-13 17:13] LABS: ALANINE AMINOTRANSFERASE 19 U/L (0-55); MAGNESIUM 2.4 MG/DL (1.6-2.4)
[2021-02-13 17:34] LABS: FREE T4 (FREE THYROXINE) 1.42 NG/DL (0.70-1.48)
[2021-02-13 17:59] LABS: BILIRUBIN,URINE NEGATIVE (NEGATIVE); CLARITY,URINE CLEAR; COLOR,URINE YELLOW; GLUCOSE, URINE (UA) NEGATIVE (NEGATIVE); KETONES,URINE TRACE (NEGATIVE); LEUKOCYTE ESTERASE ,URINE 1+ (NEGATIVE); NITRITE,URINE POSITIVE (NEGATIVE); PROTEIN,URINE TRACE (NEGATIVE)
--- NOTE | 2021-02-13 17:59 | ED General ---
General Chief Complaint: General Problems/Pain Stated Complaint: LEG PAIN Nursing Triage Note: PT TO FT2 PT STATES PT UNABLE TO WALK TODAY. STATES HAS DEMENTIA BUT HAS BECOME INCREASINGLY WEAK AND IS UNABLE TO AMBULATE, PT VERY FRAIL. STATES IS INCREASINGLY HARDER FOR HIM TO CARE FOR HER. PT IS UNABLE TO EXPLAIN WHY SHE IS UNABLE TO WALK, DENIES PAIN, ASSIT X 2 TO GET TO CART. Source of Information: Patient, Family Exam Limitations: Other History of Present Illness Date Seen by Provider: Feb 13, 2021 Time Seen by Provider: 16:21 Initial Comments This 85-year-old woman presents to the emergency room with generalized weakness. She is brought here by her who is her primary caregiver. She has advanced dementia and does not eat or drink well. She is rather frail and cachectic in appearance. She is normally able to ambulate with assistance but today could not walk. She denies pain but states she does not understand why she cannot walk today. She does not appear to have any focal deficits but appears just generally weak. Her is under the impression he will no longer be able to take care of her. He has inquired about [facility] hospice, or possibly [facility]. Allergies and Home Medications Allergies Uncoded Allergies: SULFA (Allergy, Unknown, 04/19/20) FOUND CORRECT ALLERGY SPELLING ON PHYSICIAN H&P Patient Home Medication List Home Medication List Reviewed: Yes Acetaminophen (Tylenol) 325 Mg Tablet, 650 MG PO Q6H PRN for PAIN-MILD (1-4), (Reported) Entered as Reported by: TIM TOLEDO on 04/23/20 1122 Alendronate Sodium (Alendronate Sodium) 70 Mg Tablet, 70 MG PO WEEKLY, (Reported) Entered as Reported by: TIM TOLEDO on 04/23/20 1122 Anastrozole (Arimidex) 1 Mg Tablet, 1 MG PO DAILY, (Reported) Entered as Reported by: MARIYA NICHOLE on 04/02/20 1204 Levothyroxine Sodium (Levothyroxine Sodium) 50 Mcg Tablet, 50 MCG PO DAILY, (Reported) Entered as Reported by: MARIYA NICHOLE on 04/02/20 1204 Metformin HCl (Metformin HCl) 500 Mg Tablet, 500 MG PO BID WITH MEALS, (Reported) Entered as Reported by: MARIYA NICHOLE on 04/02/20 1204 Olmesartan Medoxomil (Olmesartan Medoxomil) 40 Mg Tablet, 40 MG PO DAILY, (Reported) Entered as Reported by: MARIYA NICHOLE on 04/02/20 1204 Omeprazole (Omeprazole) 20 Mg Capsule.dr, 20 MG PO DAILY, (Reported) Entered as Reported by: GUNNER SCHUMACHER on 04/20/20 1425 Simvastatin (Simvastatin) 20 Mg Tablet, 20 MG PO DAILY, (Reported) Entered as Reported by: MARIYA NICHOLE on 04/02/20 1204 Review of Systems Review of Systems Constitutional: see HPI EENTM: no symptoms reported Respiratory: no symptoms reported Cardiovascular: no symptoms reported Gastrointestinal: see HPI Genitourinary: no symptoms reported : No Musculoskeletal: see HPI Skin: no symptoms reported Psychiatric/Neurological: See HPI Hematologic/Lymphatic: No Symptoms Reported Immunological/Allergic: no symptoms reported Past Sj[place]-Fpzsqv-Vrkvqz Hx Patient Social History Tobacco Use?: No Substance use?: No Alcohol Use?: No Pt feels they are or have been: No Immunizations Up To Date Second COVID19 Vaccination Phong: STATES HAS HAD BOTH VACCINES NOT SURE BRAND Past Medical History Surgeries: Yes (RECENT ABD WITH BRYON) Abdominal (Right hemicolectomy) Respiratory: No Cardiac: Yes Neurological: Yes Dementia Reproductive Disorders: No Sexually Transmitted Disease: No Gastrointestinal: Yes (Right hemicolectomy for treatment of colon cancer) Musculoskeletal: No Endocrine: Yes Hypothyroidsim, Diabetes, Non-Insulin dep Hearing Impairment: Hard of Hearing, Hearing Aide Right, Hearing Aide Left Cancer: Yes Colon (Invasive adenocarcinoma) Psychosocial: No Blood Disorders: No Family Medical History No Pertinent Family Hx Physical Exam Vital Signs Vital Signs - First Documented 02/13/21 15:35 Temp 36.9 Pulse 95 Resp 18 B/P (MAP) 101/67 (78) Pulse Ox 97 Capillary Refill : Less Than 3 Seconds Height, Weight, BMI Height: 5'2.00" Weight: 120lbs. 0.0oz. [id number]; 17.00 BMI Method: General Appearance: No Apparent Distress, WD/WN, Cachetic HEENT: PERRL/EOMI, Normal ENT Inspection, Other (Oropharynx somewhat dry) Neck: Normal Inspection Respiratory: Lungs Clear, Normal Breath Sounds, No Accessory Muscle Use Cardiovascular: Regular Rate, Rhythm, No Edema, No Murmur Gastrointestinal: Normal Bowel Sounds, Non Tender, Soft Extremity: Normal Inspection, No Pedal Edema Neurologic/Psychiatric: Alert, Normal Mood/Affect, Motor Weakness (Generalized weakness), Other (Dementia with disorientation at baseline) Skin: Normal Color, Warm/Dry Progress/Results/Core Measures Suspected Sepsis SIRS Temperature: Pulse: 95 Respiratory Rate: 18 Laboratory Tests 02/13/21 16:30: White Blood Count 7.2 Blood Pressure 101 /67 Mean: 78 Laboratory Tests 02/13/21 16:30: Creatinine 2.06H, Platelet Count 274, Total Bilirubin 0.6 Results/Orders Lab Results Laboratory Tests Test 02/13/21 16:30 02/13/21 17:55 Range/Units White Blood Count 7.2 4.3-11.0 10^3/uL Red Blood Count 3.03 L 3.80-5.11 10^6/uL Hemoglobin 11.2 L 11.5-16.0 g/dL Hematocrit 35 35-52 % Mean Corpuscular Volume 115 H 80-99 fL Mean Corpuscular Hemoglobin 37 H 25-34 pg Mean Corpuscular Hemoglobin Concent 32 32-36 g/dL Red Cell Distribution Width 12.4 10.0-14.5 % Platelet Count 274 130-400 10^3/uL Mean Platelet Volume 9.5 9.0-12.2 fL Immature Granulocyte % (Auto) 0 % Neutrophils (%) (Auto) 68 42-75 % Lymphocytes (%) (Auto) 17 12-44 % Monocytes (%) (Auto) 11 0-12 % Eosinophils (%) (Auto) 3 0-10 % Basophils (%) (Auto) 1 0-10 % Neutrophils # (Auto) 4.9 1.8-7.8 10^3/uL Lymphocytes # (Auto) 1.3 1.0-4.0 10^3/uL Monocytes # (Auto) 0.8 0.0-1.0 10^3/uL Eosinophils # (Auto) 0.2 0.0-0.3 10^3/uL Basophils # (Auto) 0.1 0.0-0.1 10^3/uL Immature Granulocyte # (Auto) 0.0 0.0-0.1 10^3/uL Sodium Level 140 135-145 MMOL/L Potassium Level 4.9 3.6-5.0 MMOL/L Chloride Level 117 H 98-107 MMOL/L Carbon Dioxide Level 12 L 21-32 MMOL/L Anion Gap 11 5-14 MMOL/L Blood Urea Nitrogen 56 H 7-18 MG/DL Creatinine 2.06 H 0.60-1.30 MG/DL Estimat Glomerular Filtration Rate 23 BUN/Creatinine Ratio 27 Glucose Level 140 H 70-105 MG/DL Calcium Level 10.8 H 8.5-10.1 MG/DL Corrected Calcium 10.9 H 8.5-10.1 MG/DL Magnesium Level 2.4 1.6-2.4 MG/DL Total Bilirubin 0.6 0.1-1.0 MG/DL Aspartate Amino Transf (AST/SGOT) 20 5-34 U/L Alanine Aminotransferase (ALT/SGPT) 19 0-55 U/L Alkaline Phosphatase 37 L 40-136 U/L Total Protein 6.9 6.4-8.2 GM/DL Albumin 3.9 3.2-4.5 GM/DL Thyroid Stimulating Hormone (TSH) 0.03 L 0.35-4.94 UIU/ML Free Thyroxine 1.42 0.70-1.48 NG/DL Serum Alcohol < 10 <10 MG/DL Urine Color YELLOW Urine Clarity CLEAR Urine pH 6.0 5-9 Urine Specific Bypro 1.020 1.016-1.022 Urine Protein TRACE H NEGATIVE Urine Glucose (UA) NEGATIVE NEGATIVE Urine Ketones TRACE H NEGATIVE Urine Nitrite POSITIVE H NEGATIVE Urine Bilirubin NEGATIVE NEGATIVE Urine Urobilinogen 0.2 < = 1.0 MG/DL Urine Leukocyte Esterase 1+ H NEGATIVE Urine RBC (Auto) NEGATIVE NEGATIVE Urine RBC NONE /HPF Urine WBC 5-10 H /HPF Urine Squamous Epithelial Cells RARE /HPF Urine Crystals NONE /LPF Urine Bacteria FEW H /HPF Urine Casts NONE /LPF Urine Mucus NEGATIVE /LPF Urine Culture Indicated YES My Orders Orders - JE GARLAND MD Cbc With Automated Diff (02/13/21 16:21) Comprehensive Metabolic Panel (02/13/21 16:21) Magnesium (02/13/21 16:21) Ua Culture If Indicated (02/13/21 16:21) Ed Iv/Invasive Line Start (02/13/21 16:21) Thyroid Stimulating Hormone (02/13/21 16:22) Free T4 (Free Thyroxine) (02/13/21 16:22) Alcohol (02/13/21 16:36) Ns Iv 1000 Ml (Sodium Chloride 0.9%) (02/13/21 18:00) Urine Culture (02/13/21 17:55) Vital Signs/I&O 02/13/21 15:35 Temp 36.9 Pulse 95 Resp 18 B/P (MAP) 101/67 (78) Pulse Ox 97 Capillary Refill : Less Than 3 Seconds Blood Pressure Mean: 78 Progress Note : Time: 18:00 Progress Note Patient has acute kidney injury, likely from poor oral intake. Urinalysis is pending at this time. IV hydration is being started with a liter of IV normal saline. I will consult social work based on my conversation with patient's discussed in the HPI. We also discussed CODE STATUS and she is to be a DNR. Departure Communication (Admissions) Time/Spoke to Admitting Phy: 17:26 Dr. Bower Impression Primary Impression: Acute kidney injury Additional Impressions: Poor fluid intake Advanced dementia Generalized weakness Urinary tract infection Qualified Codes: N39.0 - Urinary tract infection, site not specified Disposition: ADMITTED INPATIENT Condition: Stable Admissions Decision to Admit Reason: Admit from ER (General) Decision to Admit/Date: Feb 13, 2021 Time/Decision to Admit Time: 17:20 Departure-Patient Inst. Referrals: CB CARY DO (PCP/Family) Primary Care Physician JE GARLAND MD Feb 13, 2021 17:59
[2021-02-13] MEDS ORDERED: NS IV 1000 ML 1,000 ML IV SCH (18:00)
[2021-02-13 18:10] LABS: BACTERIA,URINE FEW /HPF; SQUAMOUS EPITHELIAL CELL,UR RARE /HPF
[2021-02-13] MEDS ORDERED: cefTRIAXone 1 GM PRE-MIX 50 ML IV STA (18:17)
[2021-02-13 19:52] VITALS: BP 129/57
[2021-02-13] MEDS ORDERED: LACTATED RINGERS 1,000 ML IV ONE (20:21)
[2021-02-13] MEDS ORDERED: ONDANSETRON 4 MG/2 ML (SDV) Z0FRAN IV PRN (22:00)
[2021-02-13] MEDS: LACTATED RINGERS 1,000 ML IV SCH (22:44)
[2021-02-13 23:41] VITALS: BP 137/65
[2021-02-14 03:47] VITALS: BP 130/71
[2021-02-14] MEDS: LACTATED RINGERS 1,000 ML IV SCH ×2 (04:19→12:06)
[2021-02-14 06:28] LABS: BASOPHILS # (AUTO) 0.1 10^3/uL (0.0-0.1); BASOPHILS % (AUTO) 1 % (0-10); EOSINOPHILS # (AUTO) 0.3 10^3/uL (0.0-0.3); EOSINOPHILS % (AUTO) 4 % (0-10); HEMATOCRIT 31 % (35-52); LYMPHOCYTES # (AUTO) 1.3 10^3/uL (1.0-4.0); LYMPHOCYTES % (AUTO) 17 % (12-44); MEAN CORPUSCULAR HEMOGLOBIN 37 pg (25-34); MEAN CORPUSCULAR HGB CONC 32 g/dL (32-36); MEAN CORPUSCULAR VOLUME 114 fL (80-99); MEAN PLATELET VOLUME 9.5 fL (9.0-12.2); MONOCYTES # (AUTO) 0.7 10^3/uL (0.0-1.0); MONOCYTES % (AUTO) 9 % (0-12); NEUTROPHILS # (AUTO) 5.3 10^3/uL (1.8-7.8); NEUTROPHILS % (AUTO) 69 % (42-75); PLATELET COUNT 250 10^3/uL (130-400); WHITE BLOOD COUNT 7.7 10^3/uL (4.3-11.0)
[2021-02-14 06:32] LABS: SMEAR SCAN COMMENT YES
[2021-02-14 06:34] LABS: POTASSIUM 3.8 MMOL/L (3.6-5.0)
[2021-02-14 06:39] LABS: CREATININE SERUM 1.39 MG/DL (0.60-1.30)
[2021-02-14 07:41] VITALS: BP 133/63
--- NOTE | 2021-02-14 11:35 | History & Physical-Hospitalist ---
History of Present Illness HPI/Chief Complaint Salma Jane is an 85 year old female with advanced dementia, severe-protein calorie malnutrition, colon cancer s/p surgical resection, HTN, HLD, GERD, T2DM, hypothyroidism, osteoporosis, who presented with weakness. She is a poor historian due to her dementia. Her provides the history. She told him yesterday that she was unable to walk and he brought her in to the ER. She has not been able to eat or drink well. She has not been having fevers or chills. She has not had chest pain or shortness of breath. She has not had a cough. She has not had nausea or vomiting. She has not had abdominal pain. She has not had diarrhea. She walks without an assistive device, but requires her husbands support when ambulating. He does not believe that he will be able to care for her at home. We discussed hospice and he already had information for [facility] which he received from a friend. Source: patient, family Exam Limitations: clinical condition Date Seen 02/14/21 Time Seen by a Provider: 10:05 Attending Physician Annabella Lafleur MD PCP Binh Peterson DO Referring Physician Date of Admission Feb 13, 2021 at 18:06 Home Medications & Allergies Home Medications Reviewed patient Home Medication Reconciliation performed by pharmacy medication reconciliations ruling technician and/or nursing. Patients Allergies have been reviewed. Allergies Allergies Uncoded Allergies SULFA ( Allergy, Unknown, 04/19/20) FOUND CORRECT ALLERGY SPELLING ON PHYSICIAN H&P Past Kjgjget-Paupey-Jadpal Hx Patient Social History Tobacco Use?: No Smokeless Tobacco Frequency: Never a User Use of E-Cig and/or Vaping dev: No Substance use?: No Alcohol Use?: Unable to obtain Pt feels they are or have been: No Immunizations Up To Date First/Initial COVID19 Vaccinat: STATES HAS HAD BOTH VACCINES NOT SURE BRAND Second COVID19 Vaccination Phong: STATES HAS HAD BOTH VACCINES NOT SURE BRAND Current Status status: No status: No Advance Directives: Unable to obtain Communicates: Verbally Primary Language: Rwandan Preferred Spoken Language: Rwandan Is interpretation needed?: No Sensory deficits: Hearing impairment Past Medical History Surgeries: Abdominal (Right hemicolectomy) Dementia Sexually Transmitted Disease: No Hypothyroidsim, Diabetes, Non-Insulin dep Hearing Impairment: Hard of Hearing, Hearing Aide Right, Hearing Aide Left Colon (Invasive adenocarcinoma) Blood Disorders: No Family Medical History No Pertinent Family Hx Review of Systems Constitutional: weakness EENTM: no symptoms reported Respiratory: no symptoms reported Cardiovascular: no symptoms reported Gastrointestinal: loss of appetite Genitourinary: no symptoms reported Musculoskeletal: no symptoms reported Skin: no symptoms reported Psychiatric/Neurological: No Symptoms Reported Physical Exam Physical Exam Vital Signs Vital Signs - First Documented 02/13/21 02/13/21 15:35 19:27 Temp 36.9 Pulse 95 Resp 18 B/P (MAP) 101/67 (78) Pulse Ox 97 O2 Delivery Room Air Capillary Refill : Less Than 3 Seconds Height, Weight, BMI Height: 5'2.00" Weight: 120lbs. 0.0oz. [id number]; 17.57 BMI Method: General Appearance: Chronically ill, Cachetic HEENT: PERRL/EOMI, Pharynx Normal, Other (wearing glasses) Neck: Normal Inspection, Supple Respiratory: Lungs Clear, Normal Breath Sounds, No Respiratory Distress Cardiovascular: Regular Rate, Rhythm, No Edema, No Murmur Gastrointestinal: Normal Bowel Sounds, Non Tender, Soft Extremity: Normal Inspection, Non Tender, No Pedal Edema Neurologic/Psychiatric: Alert, No Motor/Sensory Deficits, Normal Mood/Affect, Disoriented Skin: Normal Color, Warm/Dry Results Results/Procedures Labs Laboratory Tests 02/13/21 16:30 02/14/21 05:24 Patient resulted labs reviewed. Assessment/Plan Admission Diagnosis Acute kidney injury superimposed on chronic kidney disease Admission Status: Inpatient Order (span 2 midnights) Reason for Inpatient Admission: IV fluids and antibiotics Assessment and Plan Advanced dementia Severe protein-calorie malnutrition Cachexia Palliative/Hospice consulted [facility] to follow up tomorrow Will likely need prison placement Add [place] Ensure Possible UTI UA with possible UTI Urine culture pending Rocephin HTN HLD GERD Osteoporosis Hypothyroidism History of colon cancer s/p hemicolectomy Diagnosis/Problems Diagnosis/Problems (1) Acute kidney injury superimposed on chronic kidney disease Status: Acute (2) Advanced dementia Status: Acute (3) Severe protein-calorie malnutrition Status: Acute (4) Cachexia Status: Acute (5) UTI (urinary tract infection) Status: Acute ANNABELLA LAFLEUR MD Feb 14, 2021 11:35
[2021-02-14 11:36] VITALS: BP 131/69
[2021-02-14] MEDS ORDERED: FLU QUAD HIGH DOSE 240 MCG/0.7 ML 2021-22 (FLUZONE) IM ONE (11:45)
[2021-02-14] MEDS ORDERED: FLU QUADRIvalent (3YOA+) 60 mcg/0.5 ml 2021-22(AFLURIA) IM ONE (11:45)
[2021-02-14 16:02] VITALS: BP 139/80
[2021-02-14] MEDS ORDERED: cefTRIAXone 1 GM/50 ML (PRE-MIX) IV SCH (18:00)
[2021-02-14 19:42] VITALS: BP 154/70
[2021-02-15] VITALS: BP 137/67
[2021-02-15] MEDS: LACTATED RINGERS 1,000 ML IV SCH (01:57)
[2021-02-15 03:11] VITALS: BP 136/65
[2021-02-15 08:00] VITALS: BP 140/64
[2021-02-15] MEDS ORDERED: OMEP40CA6 PO (09:12)
[2021-02-15] MEDS ORDERED: CEFD300C3 PO (10:56)
[2021-02-15 11:55] VITALS: BP 162/82
--- NOTE | 2021-02-15 12:15 | Discharge Summary ---
Discharge Summary Hospital Course Problems/Dx: (1) Acute kidney injury superimposed on chronic kidney disease Status: Acute (2) Advanced dementia Status: Acute (3) Severe protein-calorie malnutrition Status: Acute (4) Cachexia Status: Acute (5) UTI (urinary tract infection) Status: Acute Hospital Course Date of Admission: Feb 13, 2021 at 18:06 Admission Diagnosis: TAE on CKD Family Physician/Provider: Cb Cary DO Date of Discharge: 02/15/21 Discharge Diagnosis: TAE on CKD, advanced dementia, cachexia, severe protein- calorie malnutrition Hospital Course: Salma Jane is an 85 year old female with advanced dementia and cachexia due to severe protein-calorie malnutrition who presented with weakness and was admitted with TAE on CKD. She has been losing strength and weight over the recent months. Her is no longer able to care for her at home. He elected to pursue hospice care with [facility] and she was discharged to [facility] in stable, fair condition. Labs and Pending Lab Test: Microbiology 02/13/21 Urine Culture - Preliminary, Resulted Escherichia coli Mixed Bacterial Radhika Home Meds Active Cefdinir 300 Mg Capsule 300 Mg PO BID 7 Days Reported Omeprazole 40 Mg Capsule.dr 40 Mg PO DAILY Tylenol (Acetaminophen) 325 Mg Tablet 650 Mg PO Q6H PRN TAKES 2 (325MG) TABLETS Alendronate Sodium 70 Mg Tablet 70 Mg PO SAT Arimidex (Anastrozole) 1 Mg Tablet 1 Mg PO DAILY Metformin HCl 500 Mg Tablet 500 Mg PO BID WITH MEALS Simvastatin 20 Mg Tablet 20 Mg PO DAILY Olmesartan Medoxomil 40 Mg Tablet 40 Mg PO DAILY Levothyroxine Sodium 50 Mcg Tablet 50 Mcg PO DAILY Assessment/Pt Instructions You are being discharged on hospice to [facility]. Please contact [facility] with any questions, concerns, or further needs. Discharge Planning: <30 minutes discharge planning Discharge Instructions Discharge Diet: No Restrictions Activity as Tolerated: Yes Consultations Palliative Care Discharge Physical Examination Vital Signs Vital Signs Date Time Temp Pulse Resp B/P (MAP) Pulse Ox O2 Delivery O2 Flow Rate FiO2 02/15/21 11:55 36.0 57 18 162/82 (108) 98 Room Air General Appearance: Chronically ill, Cachetic Respiratory: Lungs Clear, Normal Breath Sounds, No Respiratory Distress Cardiovascular: Regular Rate, Rhythm, No Edema, No Murmur Gastrointestinal: Normal Bowel Sounds, Soft Extremity: Normal Inspection, No Pedal Edema Skin: Warm/Dry, Pallor Neurologic/Psychiatric: Alert, Depressed Affect, Disoriented Allergies: Uncoded Allergies: SULFA (Allergy, Unknown, 04/19/20) FOUND CORRECT ALLERGY SPELLING ON PHYSICIAN H&P Copy Copies To 1: CB CARY DO Discharge Summary Date of Admission Feb 13, 2021 at 18:06 Date of Discharge Discharge Date: Feb 15, 2021 Discharge Time: 12:12 Admission Diagnosis Acute kidney injury superimposed on chronic kidney disease Consults/Procedures Consulations Palliative Care Comfort Measures/ End of Life Care: Pallative Care Advance Care discuss with: patient, family member (s) Plan: initiate discussion, clarifying prognosis, identified end-of-life goals, developed treatment plan Time spent on discussion (min): 30 Discharge Diagnosis Advanced dementia Severe protein-calorie malnutrition Cachexia UTI TAE on CKD (1) Acute kidney injury superimposed on chronic kidney disease Status: Acute (2) Advanced dementia Status: Acute (3) Severe protein-calorie malnutrition Status: Acute (4) Cachexia Status: Acute (5) UTI (urinary tract infection) Status: Acute ANNABELLA LAFLEUR MD Feb 15, 2021 12:13
== END 2021-02-15 13:00 | disposition hospice, inpatient (51) | DRG 682 ==
LOC: EDUNIT# 15:11 → ER 15:15 → 4TH 18:06
PROVIDERS: ADMIT Internal Medicine; ATTEND Internal Medicine
DX: N17.9 Acute kidney failure, unspecified (principal); E43 Unspecified severe protein-calorie malnutrition; Z68.1 Body mass index [BMI] 19.9 or less, adult; N39.0 Urinary tract infection, site not specified; E78.5 Hyperlipidemia, unspecified; K21.9 Gastro-esophageal reflux disease without esophagitis; E03.9 Hypothyroidism, unspecified; M81.0 Age-related osteoporosis without current pathological fracture; I12.9 Hypertensive chronic kidney disease with stage 1 through stage 4 chronic kidney disease, or unspecified chronic kidney disease; E11.22 Type 2 diabetes mellitus with diabetic chronic kidney disease; F03.90 Unspecified dementia, unspecified severity, without behavioral disturbance, psychotic disturbance, mood disturbance, and anxiety; Z85.038 Personal history of other malignant neoplasm of large intestine; Z90.49 Acquired absence of other specified parts of digestive tract; Z51.5 Encounter for palliative care
CPT/HCPCS: 36415; 51701; 80048; 80053; 80320; 81000; 83735; 84439; 84443; 85025; 87077; 87088; 87186; 96361; 96365